=== PATIENT | female | born 1965 | race Caucasian/White ===

== ENCOUNTER 2017-09-03 11:13 | Day surgery (SDC) | payer MEDICAID, SELFPAY ==
[2017-09-03 11:28] VITALS: BP 107/63; PULSE 85; RESP 16; TEMP 36; O2SAT 97; BMI 36.6
[2017-09-03] MEDS: Cefazolin 2 GM in 0.9% Normal Saline 100 ML IV (12:56)
--- NOTE | 2017-09-03 13:27 | PCM.OPRPT ---
Problem List (1) Seroma, postoperative Status: Acute Qualifiers: Surgical complication system/body Area: subcutaneous tissue Procedure type: non-dermatologic Qualified Code(s): L76.34 - Postprocedural seroma of skin and subcutaneous tissue following other procedure Report of Operation Date of Procedure: 09/03/17 Pre-Operative Diagnosis: Right lower quadrant pain and subcutaneous mass Post-Operative Diagnosis: Postoperative seroma Surgery/Procedure Performed:: Incision and drainage of postoperative seroma with placement of drain Description of Surgical Findings:: The patient had an ultrasound beginning of August which showed a possible mass versus seroma in the right lower quadrant where she was having all of her pain. I made an incision in the area and deepened into this area and intra-drain fluid and communicated with the former hernia site. About 70 cc of fluid was removed and a 15 Slovenian round drain was placed in the cavity. Specimen's removed: None Drains: 10 Slovenian round JANIE Description of Procedure: The patient was prepped and draped in usual sterile fashion. A 2 cm incision was made at the site where she was having the pain. Electrocautery was used to gain hemostasis. Next I dissected deeper until the firm area was reached. Upon entering this there was a large return of fluid. This was suctioned and a Yankauer was used to follow the tract medially where a copious amount of fluid was suctioned. There appeared to be a cavity at the former hernia repair site. I placed a 15 Slovenian round drain into this cavity and placed to bulb suction. The drain was then sutured to the skin with a nylon suture. Next interrupted 3-0 Vicryl sutures were used to close the incision as well as Steri-Strips. The patient tolerated the procedure well and the drain was put to bulb suction.
[2017-09-03 13:35] VITALS: BP 107/63; BP 109/65; PULSE 90; RESP 12; TEMP 36.3; O2SAT 98
[2017-09-03 13:45] VITALS: BP 107/63; BP 95/64; PULSE 82; RESP 16; O2SAT 100
--- NOTE | 2017-09-03 13:51 | DCINST_ITS ---
Discharge Diet: Light diet - advance as tolerated Discharge Activity: Return to Normal Activity, May Not Drive - for 2-3 days or while taking narcotic pain meds., May Shower - with the bandage in place 1-2 days after surgery. Call your doctor if your incision/area has: Continuous Slow Oozing, Sudden Increased Bleeding, Increased Pain/ Swelling, Increased Redness, Foul Smelling Discharge Call your doctor if you observe: Fever of 101 or Higher Suture Line Care: Avoid Pulling/Pushing, Avoid Pinching/Bending Change Dressing in (Days):: 2 - Record drainage amount Cleanse incision/area with: Keep Dressing Clean & Dry Allergies/Adverse Reactions: Allergies ibuprofen Allergy (Verified 09/02/17 11:00) Angioedema latex Allergy (Verified 09/02/17 11:00) Rash pineapple [Pineapple] Allergy (Verified 09/02/17 11:00) Anaphylaxis lorazepam [From Ativan] Adverse Reaction (Verified 09/02/17 11:02) Upset Stomach naproxen sodium [From Aleve] Adverse Reaction (Verified 09/02/17 11:00) Other Medications to take at Discharge Budesonide/Formoterol 80-4.5 [Symbicort 80-4.5 Mcg Inhaler] 2 puff INHALATION BID 01/18/14 Citalopram [Celexa] 20 mg PO DAILY 01/18/14 Loratadine [Claritin] 10 mg PO DAILY 01/18/14 Trazodone HCl 50 mg PO DAILY 05/04/14 Albuterol Inhaler [Ventolin Hfa] 2 puff INHALATION Q4H PRN PRN 03/26/17 Dextroamphetamine/Amphetamine [Adderall 30 mg Tablet] 30 mg PO BID 03/26/17 Divalproex Sodium [Depakote] 125 mg PO BIDCM 03/26/17 Gabapentin [Neurontin] 800 mg PO BIDCM 03/26/17 Diazepam [Valium] 5 mg PO 4X/DAY PRN PRN #30 tab 04/03/17 Doxycycline 100 mg PO BID #28 cap 04/03/17 Oxycodone HCl/Acetaminophen [Percocet 7.5-325 mg Tablet] 1 - 2 tab PO 4X/DAY # 50 04/03/17 ProMETHAzine [Phenergan] 25 mg PO 4X/DAY PRN PRN #30 tab 04/03/17 Docusate Sodium [Stool Softener] 100 mg PO DAILY 09/02/17 Oxycodone HCl/Acetaminophen [Percocet 5/325] 1 - 2 tablet PO Q4H PRN 10 Days # 20 tablet 09/03/17 The following prescriptions were given: Oxycodone HCl/Acetaminophen [Percocet 5/325] 1 - 2 tablet PO Q4H PRN 10 Days # 20 tablet PRN Reason: Pain Primary Care Physician: Juan Manuel Carbajal DO [Primary Care Provider] - Please Follow Up With: Karl Nguyen MD When: call tomorrow to make 1 week follow up appt [phone]
[2017-09-03 14:00] VITALS: BP 107/63; BP 98/61; PULSE 77; RESP 18; O2SAT 98
[2017-09-03 14:15] VITALS: BP 107/63; PULSE 72; RESP 16; TEMP 36.4; O2SAT 97
[2017-09-03 14:47] VITALS: BP 100/78; BP 107/63; PULSE 78; RESP 18; TEMP 36.8; O2SAT 98
== END 2017-09-03 14:49 | disposition home or self-care (01) ==
LOC: SDC 11:14 → AC 11:14
PROVIDERS: Family Provider Family Medicine; PCP Family Medicine; Visit Provider Surgery
PROC: (CPT 10140; principal; 2017-09-03 12:45)
DX: L76.34 Postprocedural seroma of skin and subcutaneous tissue following other procedure (principal); R10.9 Unspecified abdominal pain; M54.9 Dorsalgia, unspecified; G89.29 Other chronic pain; J45.909 Unspecified asthma, uncomplicated; K58.9 Irritable bowel syndrome, unspecified; K21.9 Gastro-esophageal reflux disease without esophagitis; F90.9 Attention-deficit hyperactivity disorder, unspecified type; F31.9 Bipolar disorder, unspecified; F41.9 Anxiety disorder, unspecified; Z79.899 Other long term (current) drug therapy; Z98.51 Tubal ligation status; Z78.0 Asymptomatic menopausal state; Z90.710 Acquired absence of both cervix and uterus
CPT/HCPCS: 00400; 10140; J7120; J2405

== ENCOUNTER → 2017-09-18 13:00 | Outpatient (CLI) | payer MEDICAID, SELFPAY ==
[2017-09-22 12:53] LABS: ANTINUCLEAR ANTIBODIES DIRECT Negative (Negative)
== END ==
PROVIDERS: Family Provider Family Medicine; PCP Family Medicine; Visit Provider Family Medicine
DX: R21 Rash and other nonspecific skin eruption (principal)
CPT/HCPCS: 86038; 86225; 86235

== ENCOUNTER → 2017-10-22 20:07 | Outpatient (CLI) | payer MEDICAID, SELFPAY | PROVIDERS: Family Provider Family Medicine; PCP Family Medicine; Visit Provider Family Medicine | DX: G47.33 Obstructive sleep apnea (adult) (pediatric) (principal) | CPT/HCPCS: 95811 ==

== ENCOUNTER → 2017-12-17 11:29 | Outpatient (CLI) | payer MEDICAID, SELFPAY | PROVIDERS: Family Provider Family Medicine; PCP Family Medicine; Visit Provider Family Medicine | DX: Z79.899 Other long term (current) drug therapy (principal) | CPT/HCPCS: 36415 ==

== ENCOUNTER 2018-01-31 23:04 | Inpatient (IN) | payer MEDICAID, SELFPAY ==
[2018-01-31 23:04] VITALS: BP 115/72; PULSE 121; RESP 26; TEMP 37.8; O2SAT 100; BMI 38.7
[2018-01-31 23:35] VITALS: PULSE 118; RESP 26
[2018-01-31] MEDS: Ipratropium/Albuterol Sulfate 3 ML AMPUL.NEB INHALATION (23:35)
[2018-01-31 23:38] LABS: Absolute Lymphocyte Count 1.04 X10^3/ul (0.83-4.51); Absolute Neutrophil Count 16.3 X10^3/uL (2.0-7.7); Basophil# 0.01 X10^3/uL; Basophil% 0.1 % (0-1); Hematocrit 40.4 % (37-47); Lymphocyte # 1.04 X10^3/ul (4.0); Lymphocyte % 5.6 % (19-41); Mean Corp Hgb Conc 34.7 g/gl (32-36); Mean Corpuscular Hgb 28.6 pg (27.0-32.0); Mean Corpuscular Volume 82.4 fL (81-99); Mean Platelet Vol. 10.6 fl (6.2-12.0); Monocyte# 1.08 X10^3/uL; Monocyte% 5.8 % (0-10); Neutrophil # 16.32 X10^3/uL (2.7-7.7); Neutrophil % 88.3 % (47-70); Platelet Count 221 K/mm3 (150-450); RBC Distribution Width CV 13.6 % (11.6-14.6); RBC Distribution Width SD 40.6 fl (35.1-43.9); White Blood Count 18.5 K/mm3 (4.4-11.0)
[2018-01-31 23:40] LABS: POSITIVE COUNT NO; POSITIVE DIFFERENTIAL NO; POSITIVE MORPHOLOGY NO
[2018-01-31] MEDS: 0.9% Normal Saline 1,000 ML 1000 ML IV (23:47)
[2018-01-31] MEDS: DiphenhydrAMINE 50 MG/ML Syringe IV (23:50)
[2018-01-31] MEDS: Acetaminophen 500 MG Tablet 1000 MG PO (23:50)
[2018-01-31] MEDS: Ondansetron 4 MG/2 ML Vial IV (23:56)
[2018-01-31 23:58] LABS: ALB/GLOB Ratio 0.7 RATIO (0.9-2.4); AST(SGOT) 45 U/L (15-37); Alanine Aminotransfer ALT/SGPT 31 U/L (13-56); Albumin, Serum 3.5 g/dL (3.2-5.0); Alkaline Phosphatase 69 U/L (45-117); Anion Gap 10 (5-15); BUN 23 mg/dL (7-18); BUN/Creat Ratio 15.8 RATIO (10-20); Calcium,Total 9.3 mg/dL (8.5-10.1); Chloride 98 mmol/L (98-107); Creatinine, Serum 1.46 mg/dL (0.55-1.02); EST Glomerular Filtration Rate 40 mL/min (>60); Est Glom Filt Rate - Afr Amer 48 mL/min (>60); Glucose 92 mg/dL (74-106); Potassium 4.2 mmol/L (3.5-5.1); Protein, Total 8.5 g/dL (6.4-8.2); Sodium Level 132 mmol/L (136-145)
[2018-02-01] VITALS (15 sets, daily range): BP systolic 93–111; BP diastolic 44–70; PULSE 77–110; RESP 15–20; TEMP 37.2–37.7; O2SAT 93–98; BMI 38.6; BMI 38.7
--- NOTE | 2018-02-01 00:05 | CT_ITS ---
STUDY: CT ABDOMEN AND PELVIS WITHOUT CONTRAST REASON FOR EXAM: Female, 52 years old. Cellulitis left abdominal wall RADIATION DOSAGE (If Supplied By Facility): CTDIvol = ( 20.84 ) mGy, DLP = ( 1129.72 ) mGycm TECHNIQUE: Transaxial images were obtained from the dome of the diaphragm to the symphysis pubis without oral contrast, and without intravenous contrast. Sagittal and coronal images were reconstructed. Individualized dose optimization techniques were used for this CT. COMPARISON: None. FINDINGS: The lung bases are clear. The liver is normal with no dilated intrahepatic biliary radicles. Previous cholecystectomy. The spleen, pancreas and both adrenals are normal. The kidneys are normal with no masses, calculi or hydronephrosis. The stomach is normal. There is no bowel distention, acute appendicitis or diverticulitis. No abnormally constricting large bowel lesions. A power generator is in the right gluteal region. A lead wire extends from it into the right presacral space. Cellulitis in the left flank. Old postsurgical changes in the anterior abdominal wall at the level of the umbilicus There is no ascites, free intraperitoneal air or any evidence of epiploic appendagitis. The vascular structures in the retroperitoneum are normal The bones and joints seen are normal with no osteolytic or osteoblastic changes There is no retrocrural, retroperitoneal or mesenteric adenopathy. There is no mesenteric mistiness The urinary bladder is normal.. The uterus is absent There is no inguinal or pelvic adenopathy and there is no inguinal hernia .. CT/Abdomen/Pelvis without Cont IMPRESSION: About a 10 cm area of cellulitis in the left flank. No acute findings in the abdomen or pelvis. Specifically there is no acute appendicitis or diverticulitis. Electronically Signed: Darren Renee, at 1:27 EDT Tel , Service support ,
[2018-02-01 00:28] LABS: Color, Urine Yellow (Yellow); Glucose, Dipstick Normal (Normal); Ketone-Dipstick 5 mg/dl (Negative); Leukocyte Esterase-Dipstick 25 /ul (Negative); Nitrite-Dipstick Negative (Negative); Occult Blood-Urine Negative /ul (Negative); Protein-Dipstick Negative (Negative); Urine Bilirubin Dipstick Negative (Negative); Urine Clarity Clear (Clear); Urine Urobilinogen 4 mg/dl (Normal)
[2018-02-01 00:48] LABS: Lactic Acid 2.3 mmol/L (0.4-2.0)
--- NOTE | 2018-02-01 00:53 | NURSING ---
lab called with critical lab results. lactic acid 2.3. Dr. Bassett made aware no new orders at this time
[2018-02-01 02:19] LABS: Mucous, Urine 0 SEEN /hpf (<or=2+); Red Blood Cells-Urine 0 SEEN /hpf (0-5)
[2018-02-01 02:26] LABS: Bacteria RARE /hpf (None Seen); Squamous Epithelial Cells - UA 0-5 SEEN /hpf (5-10); White Blood Cells 0-5 SEEN /hpf (0-5)
[2018-02-01] MEDS: Cefazolin 1 GM/50 ML BAG IV ×3 (02:38→21:02)
--- NOTE | 2018-02-01 03:08 | ED.VISSUMM ---
- ER Visit Summary Date of Service: 02/01/18 Chief Complaint: Abdomen red History of Present Illness: The patient is a [address] Carbajal. She is a very poor informant. She reports that her abdomen became red today. Reports that she has had this off and on since 2011 and that is due to anxiety. Patient reports she has a fever that began today. She has been short of breath. She used her inhaler with relief. She denies a cough. She has been nausea and vomited 6 times. No blood or emesis. No diarrhea. She reports she has a headache that stated 10 severity. She does have a history of similar headaches. She denies any other complaints. Physical Examination: Vitals: 100.0, 115/72, 121, 26, 100% on room air which is not hypoxic. General: Well-nourished and well-developed. Head: Normocephalic atraumatic. Neck: Supple, no lymphadenopathy. No JVD. Nontender. Cardiovascular: Tachycardic regular rhythm with 2 out of 6 systolic murmur Respiratory: No respiratory distress. Clear to auscultation bilaterally. Abdominal: Soft, mild diffuse tenderness to palpation, nondistended, normal bowel sounds. No guarding, rebound, or peritoneal signs. Back: Nontender. Extremities: Nontender, no edema. Skin: Erythematous rash over her abdomen and left flank. This is nontender. There is no crepitus. Neurologic: Alert and oriented ?3. Cranial nerves II through XII are intact. Normal strength and sensation. Psych: Normal affect. Test Results: CBC is marked for white count of 18.5 with 88 segmented neutrophils and 6 lymphocytes. Lactic acid is 2.3. Chem-7 is more for sodium 132, BUN 23, creatinine 1.46. LFTs marked for total protein of 8.5, globulin 5.0, total bili 1.4, and AST 45. CT flank shows a 10 cm area of cellulitis left flank. There is no abscess. She does not have appendicitis diverticulitis. Emergency Department Course and Treatment: Patient had an IV placed. She was given vancomycin and Ancef IV. She was given Tylenol p.o. She was given albuterol Atrovent aerosols. She is resting comfortably. Treatment Plan: Patient was discussed Dr. Stack. She will be admitted to the hospital for further relation and treatment. Disposition: Admitted in serious condition. Impression: 1. Severe sepsis. 2. Cellulitis left flank. This note was generated with [employer] dictation software. It may contain incorrect words, spelling, and punctuation that were not noted in review of the chart prior to signing ED Disposition - Plan for ED Patient: Chief Complaint: General Illness
--- NOTE | 2018-02-01 03:12 | NURSING ---
Called ED to tell them OK to bring patient to PCU at this time. ED verbalized understanding.
--- NOTE | 2018-02-01 04:09 | PCM.RX.CS ---
Consult Pharmacy has been consulted to manage selected antiobiotic: Vancomycin Type of Consult: New start Suspected Infection: Sepsis Prior Doses of Antibiotics Received/Current Regimen: Medications Vancomycin HCl 750 mg/ Sodium (Chloride) 265 mls @ 265 mls/hr IV Q12H TRE Discontinued Medications Vancomycin HCl 1,750 mg/ (Dextrose) 535 mls @ 250 mls/hr IV X1 ONE Stop: 02/01/18 01:53 Last Admin: 01/31/18 23:50 Dose: 250 mls/hr Labs: Sodium 132 mmol/L (136-145) L 01/31/18 23:26 Potassium 4.2 mmol/L (3.5-5.1) 01/31/18 23:26 Chloride 98 mmol/L (98-107) 01/31/18 23:26 Carbon Dioxide 24.0 mmol/L (21.0-32.0) 01/31/18 23:26 Anion Gap 10 (5-15) 01/31/18 23:26 BUN 23 mg/dL (7-18) H 01/31/18 23:26 Creatinine 1.46 mg/dL (0.55-1.02) H 01/31/18 23:26 Est GFR (MDRD) Af Amer 48 mL/min (>60) L 01/31/18 23:26 Est GFR (MDRD) Non-Af 40 mL/min (>60) L 01/31/18 23:26 BUN/Creatinine Ratio 15.8 RATIO (10-20) 01/31/18 23:26 Glucose 92 mg/dL (74-106) 01/31/18 23:26 Weight used for dosin.8 kg Estimated Creatinine Clearance: 42 Goal Trough: 15-20 mcg/mL Pharmacy Plan for Drug Dosing: Pharmacy Service will continue to monitor and adjust dosing as required. Follow-Up Labs: Trough Vancomycin Labs to be done on [date and time ordered]: 02/02/18 @1132
--- NOTE | 2018-02-01 04:21 | PCM.HP.STD ---
Problem List (1) Abdominal wall redness Status: Acute (2) Shortness of breath Status: Acute History of Present Illness Date of Admission: 02/01/18 Chief Complaint: Abdominal wall redness, shortness of breath The patient is a 52 year old F seen in the emergency room at [facility] with complaints of abdominal wall redness and itching which started about 530 on 01/31/18, she also complained that she was short of breath. Patient denied any sputum production, cough, fever, or chills. Included labs which were remarkable for a white blood cell count elevation at 18.5, creatinine was elevated at 1.46, BUN was 23, lactic acid was 2.3. Patient's pulse ox on room air was 100%, her temp was 100, pulse was elevated at 121 and respirations were elevated at 26. CT abdomen and pelvis was obtained which showed a 10 cm area of cellulitis over the left flank area, examination of the patient revealed severe redness of the anterior abdominal wall extending into the left lateral flank area, there were no fluctuant areas, the skin was warm and severely reddened, no drainage was noted from the area. Patient was felt to have abdominal wall cellulitis extending into the left flank area, severe sepsis and acute kidney injury, she was given IV vancomycin and Ancef in the emergency room, she will be admitted to PCU. Past Medical History Past Medical History (Chronic Problems): Chronic Problems (Last Updated 02/01/18 @ 04:36 by Juan Manuel Stack DO) Depression (Chronic) Anxiety (Chronic) ADHD (attention deficit hyperactivity disorder), combined type (Chronic) Chronic back pain (Chronic) Abdominal wall abscess at site of surgical wound (Chronic) Medical History: Medical History (Last Updated 02/01/18 @ 04:36 by Juan Manuel Stack DO) Atypical chest pain (Resolved) R07.89 Depression (Chronic) F32.9 Anxiety (Chronic) F41.9 ADHD (attention deficit hyperactivity disorder), combined type (Chronic) F90.2 Chronic back pain (Chronic) M54.9, G89.29 Abdominal wall abscess at site of surgical wound (Chronic) T81.4XXA Bladder pacemaker Bipolar 1 disorder F31.9 H/O CERVICAL TUMOR History of left knee surgery Z98.890 History of tooth extraction K08.409 History of umbilical hernia Z87.19 IBS (irritable bowel syndrome) K58.9 REPAIR OF INFECTED ABDOMINAL WALL WITH RECON AND UMB HERNIA history of abdominal seroma removal 09/03/17 Allergies ibuprofen Allergy (Verified 01/31/18 23:05) Angioedema latex Allergy (Verified 01/31/18 23:05) Rash pineapple [Pineapple] Allergy (Verified 01/31/18 23:05) Anaphylaxis lorazepam [From Ativan] Adverse Reaction (Verified 01/31/18 23:05) Upset Stomach naproxen sodium [From Aleve] Adverse Reaction (Verified 01/31/18 23:05) Other Home Medications: Ambulatory Orders Medication Instructions Recorded Citalopram [Celexa] 20 mg PO DAILY 01/18/14 Loratadine [Claritin] 10 mg PO DAILY 01/18/14 Albuterol Inhaler [Ventolin Hfa] 2 puff INHALATION Q4H PRN PRN 03/26/17 Dextroamphetamine/Amphetamine 30 mg PO BID 03/26/17 [Adderall 30 mg Tablet] Divalproex Sodium [Depakote] 125 mg PO BIDCM 03/26/17 Gabapentin [Neurontin] 800 mg PO BIDCM 03/26/17 Diazepam [Valium] 5 mg PO 4X/DAY PRN PRN #30 tab 04/03/17 Oxycodone HCl/Acetaminophen 1 - 2 tab PO 4X/DAY #50 04/03/17 [Percocet 7.5-325 mg Tablet] Docusate Sodium [Stool Softener] 100 mg PO DAILY 09/02/17 Mometasone/Formoterol [Dulera 100 1 puff INHALATION BID 02/01/18 Mcg/5 Mcg Inhaler] Surgical History: Surgical History (Last Reviewed 02/01/18 @ 04:37 by Juan Manuel Stack DO) History of abdominoplasty Z98.890 History of bilateral carpal tunnel release Z98.890 History of hemiarthroplasty of right shoulder Z98.890 History of laparoscopic cholecystectomy Z98.890, Z90.49 History of left oophorectomy Z98.890, Z90.721 History of nasal surgery Z98.890 History of reconstruction of both breasts Z98.890 History of right knee surgery Z98.890 X 2 S/P partial hysterectomy Z90.711 Surgical History: cholecystectomy, hysterectomy, - - Bilateral carpal tunnel surgery, hemiarthroplasty of the right shoulder, reconstruction of both breasts, abdominoplasty, right knee surgery, nasal surgery, insertion of bladder pacemaker Psychiatric History: Attn. 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 Lives: With Family Smoking Status: Never smoker Tobacco Use: Non-smoker Alcohol: None Drugs: None - *Family History Maternal Family History: Family History (Last Reviewed 10/03/17 @ 13:29 by Micheline Azar) Son Asthma History Items: No pertinent history Paternal Family History: Family History (Last Reviewed 10/03/17 @ 13:29 by Micheline Azar) Son Asthma History Items: Asthma Review of Systems Constitutional: Denies: Anorexia, Chills, Fever, Night Sweats, Malaise, Weakness, Weight Change, Fatigue Eyes: Denies: Blurred vision, Cataracts, Conjunctivae Inflammation, Double vision, Drainage HEENT: Denies: Difficulty Hearing, Difficulty Swallowing, Dysphasia, Ear Pain, Eye Pain, Head Aches, Hearing Changes, Nasal bleeding, Nasal Congestion, Post Nasal Drip Cardiovascular: Denies: Chest Pain, Claudication, Chest Pressure, Chest Tightness, Edema, Heaviness, Orthopnea, Palpitations, Paroxysmal Noc. Dyspnea Respiratory: Reports: Shortness of Breath, Shortness of breath at rest, Shortness of breath upon exertion. Denies: Cough, Hemoptysis, Pleuritic Pain, Sputum production, Wheezing Gastrointestinal: Reports: Abdominal Pain - Abdominal wall discomfort. Denies: Constipation, Diarrhea, Hematemesis, Hematochezia, Nausea, Melena, Vomiting Genitourinary: Denies: Dysuria, Frequency, Hematuria, Hesitancy, Nocturia, Retention, Urgency Gynecological: Denies: Breast symptoms Musculoskeletal: Denies: Back Pain, Foot Pain, Hand Pain, Joint Pain, Joint stiffness, Joint swelling, Joint Tenderness, Leg Pain Skin: Reports: Rash - Rash over abdomen extending into the left flank area. Denies: Dryness, Pruritis Neurological: Denies: Balance problems, Blurred vision, Double vision, Change in Speech, Slurred speech, Difficulty swallowing, Focal weakness, Headaches, Incoordination, Numbness, Tingling Psychiatric: Denies: Anxiety, Depression, Homicidal Ideations, Suicidal Ideations Endocrine: Denies: Change in Body Habitus, Heat/ Cold Intolerance, Polydipsia, Polyuria Hematologic/ Lymphatic: Denies: Adenopathy, Anemia, Easy Bruising, Easy Bleeding, Petechiae, Purpura VTE Information - Inpt Only VTE Present on Admission: No VTE Mechan Device Prophylaxis: None VTE Pharm Prophylaxis ordered?: Yes Patient Problems: Active and Suspected Problems (Last Updated 02/01/18 @ 04:44 by Juan Manuel Stack DO) Abdominal wall redness (Acute) Shortness of breath (Acute) - Physical Exam General: Alert, Oriented x3, Cooperative, No apparent distress, Well developed, Well nourished HEENT: Atraumatic, PERRLA, EOMI, Normocephalic Oral: Moist Mucosa Neck: Supple, No JVD, No Nuchal Rigidity, Trachea Midline, Thyroid Normal Size and Texture Lungs: Clear to auscultation, Normal air movement, No rhonchi, No wheeze Cardiovascular: Regular rate, Regular Rhythm, Normal S1, Normal S2, No murmurs, PMI Normal, No rub noted, Tachycardic Abdomen: Bowel Sounds Present, Soft, Non Tender, Non-Distended, - - There is a diffuse rash noted over the patient's entire abdominal wall, this rash extends into the left flank area Extremities: No clubbing, No cyanosis, No edema, Capillary Refill Less than 3 Seconds Skin: No breakdown, Rash Present - There is a rash present over the entire abdominal wall extending into the left flank area, skin is indurated over the abdomen and left flank area Musculoskeletal: No Tenderness to Palpation of Joints or Extremities Neurological: Cranial nerves II-XII grossly intact, Neuro grossly intact, Muscle tone normal, Sensory exam intact to light touch and pain, Coordination normal Psych/Mental Status: Normal Affect, Appropriate, Alert and oriented to time, place, person, mood and affect Vital Signs Temp Pulse Resp BP Pulse Ox 99.5 F H 95 15 95/65 96 02/01/18 02:21 02/01/18 02:21 02/01/18 02:21 02/01/18 02:21 02/01/18 02:21 Oxygen Delivery Method Room Air Assessment/Plan All Active Problems (Last Updated 02/01/18 @ 04:44 by Juan Manuel Stack DO) Seroma, postoperative (Resolved) Abdominal wall redness (Acute) Shortness of breath (Acute) Atypical chest pain (Resolved) #1 severe sepsis secondary to abdominal wall cellulitis-patient will be admitted to PCU, she was given IV vancomycin and Ancef, these will be continued on the floor, blood cultures were obtained in the emergency room, lactic acid will be rechecked #2 abdominal wall cellulitis extending into the left flank area-treatment as above #3 acute kidney injury-patient appears to be dehydrated, patient's creatinine in March 2017 was 0.88, patient will be given IV fluids, labs will be rechecked #4 bipolar 1 disorder #5 ADHD #6 dyspnea-etiology unclear, this may be secondary to her sepsis, patient's lungs are clear and her pulse ox is 100% on room air. #7 asthma by history Code Visit Inpatient E&M: 88336 Init Hosp L3
[2018-02-01 04:24] LABS: Reflex Lactate? Y
[2018-02-01] MEDS: oxyCODONE 5 MG Tablet 10 MG PO (04:36)
[2018-02-01 04:57] LABS: International Normalized Ratio 1.2; Prothrombin Time (Protime)PT. 15.1 SECONDS (11.7-14.9)
[2018-02-01 05:11] LABS: Lactic Acid 1.3 mmol/L (0.4-2.0)
[2018-02-01] MEDS: 0.9% Normal Saline 1,000 ML 150 ML IV ×3 (05:28→20:59)
[2018-02-01] MEDS: Gabapentin 800 MG Tablet PO ×2 (07:47→16:48)
[2018-02-01] MEDS: Citalopram 20 MG Tablet PO (07:47)
[2018-02-01] MEDS: Divalproex Sodium 125 MG Tablet PO ×2 (07:47→16:48)
[2018-02-01] MEDS: Loratadine 10 MG Tablet PO (07:48)
[2018-02-01] MEDS: Docusate Sodium 100 MG Capsule PO (07:48)
--- NOTE | 2018-02-01 10:04 | PCM.PN.BLA ---
Progress Note This is a 52 years old female patient admitted because of abdominal wall redness, diagnosed with acute anterior abdominal wall cellulitis. She had a history of nonhealing infected ulcer of the lower midline abdominal wall, went for excisional debridement on March, by Dr. Silver and Dr. Nguyen. This morning, she complained of itching on her abdominal wall. She does spike of low-grade fever last night. She was seen and examined. On examination: Erythema and swelling of the anterior abdominal wall extending to the left flank with chronic nonhealing wound in the lower midline, soft abdomen, nontender. Plan: MRSA wound screen, wound culture from the wound in the lower midline, general surgery consult.
--- NOTE | 2018-02-01 10:10 | PN_ITS ---
Progress Note This is a 52 years old female patient admitted because of abdominal wall redness , diagnosed with acute anterior abdominal wall cellulitis. She had a history of nonhealing infected ulcer of the lower midline abdominal wall, went for excisional debridement on March, by Dr. Silver and Dr. Nguyen. This morning, she complained of itching on her abdominal wall. She does spike of low -grade fever last night. She was seen and examined. On examination: Erythema and swelling of the anterior abdominal wall extending to the left flank with chronic nonhealing wound in the lower midline, soft abdomen, nontender. Plan: MRSA wound screen, wound culture from the wound in the lower midline, general surgery consult.
[2018-02-01 11:46] LABS: M R Staph aureus DNA By PCR Negative (Negative); Probe Check PASS; Specimen Processing Control PASS
[2018-02-02] VITALS (11 sets, daily range): BP systolic 94–119; BP diastolic 42–67; PULSE 62–97; RESP 16–18; TEMP 36.9–37.2; O2SAT 95–98
[2018-02-02] MEDS: 0.9% Normal Saline 1,000 ML 150 ML IV ×2 (05:28→12:54)
[2018-02-02] MEDS: Cefazolin 1 GM/50 ML BAG IV ×3 (05:28→21:17)
[2018-02-02 06:32] LABS: Absolute Lymphocyte Count 1.54 X10^3/ul (0.83-4.51); Absolute Neutrophil Count 7.4 X10^3/uL (2.0-7.7); Basophil# 0.02 X10^3/uL; Basophil% 0.2 % (0-1); Eosinophil# 0.04 X10^3/uL; Eosinophils% 0.4 % (0-5); Hematocrit 35.9 % (37-47); Hemoglobin 11.9 g/dl (12.0-15.0); Lymphocyte # 1.54 X10^3/ul (4.0); Lymphocyte % 15.4 % (19-41); Mean Corp Hgb Conc 33.1 g/gl (32-36); Mean Corpuscular Hgb 28.1 pg (27.0-32.0); Mean Corpuscular Volume 84.9 fL (81-99); Mean Platelet Vol. 10.8 fl (6.2-12.0); Monocyte# 1.01 X10^3/uL; Monocyte% 10.1 % (0-10); Neutrophil # 7.39 X10^3/uL (2.7-7.7); Neutrophil % 73.8 % (47-70); Platelet Count 162 K/mm3 (150-450); RBC Distribution Width CV 14.2 % (11.6-14.6); RBC Distribution Width SD 43.2 fl (35.1-43.9); Red Blood Count 4.23 M/mm3 (4.2-5.4)
[2018-02-02 06:36] LABS: POSITIVE COUNT NO; POSITIVE DIFFERENTIAL NO; POSITIVE MORPHOLOGY NO
[2018-02-02 06:50] LABS: Anion Gap 8 (5-15); BUN 13 mg/dL (7-18); BUN/Creat Ratio 14.3 RATIO (10-20); Calcium,Total 8.1 mg/dL (8.5-10.1); Chloride 108 mmol/L (98-107); Creatinine, Serum 0.91 mg/dL (0.55-1.02); EST Glomerular Filtration Rate 69 mL/min (>60); Est Glom Filt Rate - Afr Amer 83 mL/min (>60); Glucose 94 mg/dL (74-106); Potassium 3.7 mmol/L (3.5-5.1); Sodium Level 139 mmol/L (136-145)
[2018-02-02] MEDS: Gabapentin 800 MG Tablet PO ×2 (08:11→16:11)
[2018-02-02] MEDS: Citalopram 20 MG Tablet PO (08:11)
[2018-02-02] MEDS: Docusate Sodium 100 MG Capsule PO (08:11)
[2018-02-02] MEDS: Loratadine 10 MG Tablet PO (08:11)
[2018-02-02] MEDS: Divalproex Sodium 125 MG Tablet PO ×2 (08:11→16:11)
--- NOTE | 2018-02-02 08:17 | PCM.CONS.GEN ---
Problem List (1) Abdominal wall redness Status: Acute Reason for Consult Date of Consultation: 02/02/18 History of Present Illness: The patient is a 52 year old F who is known to me for a nonhealing seroma of the abdominal wall. She presented to the emergency room yesterday with cellulitis of her abdomen. Today she reports her pain is improving and she is having no fevers or chills. Past Medical History Past Medical History (Chronic Problems): Chronic Problems (Last Updated 02/01/18 @ 04:44 by Juan Manuel Stack DO) Depression (Chronic) Anxiety (Chronic) ADHD (attention deficit hyperactivity disorder), combined type (Chronic) Chronic back pain (Chronic) Abdominal wall abscess at site of surgical wound (Chronic) Medical History: Medical History (Last Updated 02/01/18 @ 04:44 by Juan Manuel Stack DO) Atypical chest pain (Resolved) R07.89 Depression (Chronic) F32.9 Anxiety (Chronic) F41.9 ADHD (attention deficit hyperactivity disorder), combined type (Chronic) F90.2 Chronic back pain (Chronic) M54.9, G89.29 Abdominal wall abscess at site of surgical wound (Chronic) T81.4XXA Bladder pacemaker Bipolar 1 disorder F31.9 H/O CERVICAL TUMOR History of left knee surgery Z98.890 History of tooth extraction K08.409 History of umbilical hernia Z87.19 IBS (irritable bowel syndrome) K58.9 REPAIR OF INFECTED ABDOMINAL WALL WITH RECON AND UMB HERNIA history of abdominal seroma removal 09/03/17 Allergies ibuprofen Allergy (Verified 01/31/18 23:05) Angioedema latex Allergy (Verified 01/31/18 23:05) Rash pineapple [Pineapple] Allergy (Verified 01/31/18 23:05) Anaphylaxis lorazepam [From Ativan] Adverse Reaction (Verified 01/31/18 23:05) Upset Stomach naproxen sodium [From Aleve] Adverse Reaction (Verified 01/31/18 23:05) Other Home Medications: Ambulatory Orders Medication Instructions Recorded Citalopram [Celexa] 20 mg PO DAILY 01/18/14 Loratadine [Claritin] 10 mg PO DAILY 01/18/14 Albuterol Inhaler [Ventolin Hfa] 2 puff INHALATION Q4H PRN PRN 03/26/17 Dextroamphetamine/Amphetamine 30 mg PO BID 03/26/17 [Adderall 30 mg Tablet] Divalproex Sodium [Depakote] 125 mg PO BIDCM 03/26/17 Gabapentin [Neurontin] 400 mg PO BIDCM 03/26/17 Diazepam [Valium] 5 mg PO 4X/DAY PRN PRN #30 tab 04/03/17 Oxycodone HCl/Acetaminophen 1 - 2 tab PO 4X/DAY #50 04/03/17 [Percocet 7.5-325 mg Tablet] Docusate Sodium [Stool Softener] 100 mg PO DAILY 09/02/17 Mometasone/Formoterol [Dulera 100 1 puff INHALATION BID 02/01/18 Mcg/5 Mcg Inhaler] Surgical History: Surgical History (Last Reviewed 02/01/18 @ 04:37 by Juan Manuel Stack DO) History of abdominoplasty Z98.890 History of bilateral carpal tunnel release Z98.890 History of hemiarthroplasty of right shoulder Z98.890 History of laparoscopic cholecystectomy Z98.890, Z90.49 History of left oophorectomy Z98.890, Z90.721 History of nasal surgery Z98.890 History of reconstruction of both breasts Z98.890 History of right knee surgery Z98.890 X 2 S/P partial hysterectomy Z90.711 Surgical History: cholecystectomy, hysterectomy, - - Bilateral carpal tunnel surgery, hemiarthroplasty of the right shoulder, reconstruction of both breasts, abdominoplasty, right knee surgery, nasal surgery, insertion of bladder pacemaker Psychiatric History: Attn. 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 Denies: Nausea, Melena, Vomiting Genitourinary: Denies: Dysuria Musculoskeletal: Denies: Joint Tenderness Skin: Denies: Jaundice Neurological: Denies: Numbness Hematologic/ Lymphatic: Denies: Anemia Patient Problems: Active and Suspected Problems (Last Updated 02/01/18 @ 04:44 by Juan Manuel Stack DO) Abdominal wall redness (Acute) Shortness of breath (Acute) - Physical Exam General: Alert, Oriented x3, Cooperative HEENT: Atraumatic, PERRLA Neck: No JVD Lungs: Normal air movement Cardiovascular: Regular rate, Regular Rhythm Abdomen: - - Abdomen is soft, nondistended. She does have cellulitis of the abdomen that extends from midline to the left flank. There is blanching but it does not appear to be spreading beyond the marked it was made yesterday. Vital Signs Temp Pulse Resp BP Pulse Ox 98.9 F 85 16 119/54 L 98 02/02/18 08:00 02/02/18 08:00 02/02/18 08:00 02/02/18 08:00 02/02/18 08:00 Oxygen Delivery Method Room Air Weight: 240 lb 8.389 oz Body Mass Index (BMI) 38.6 Intake and Output for Last 24 Hours 01/31/18 02/01/18 02/02/18 23:59 23:59 23:59 Intake Total 4327 / 4327 1200 / 1200 Output Total 1200 / 1200 600 / 600 Balance 3127 / 3127 600 / 600 Laboratory Tests Past 24 Hrs 02/01/18 02/02/18 02/02/18 09:37 05:56 05:56 WBC 10.0 RBC 4.23 Hgb 11.9 L Hct 35.9 L MCV 84.9 MCH 28.1 MCHC 33.1 RDW 14.2 RDW Differential 43.2 Plt Count 162 MPV 10.8 Immature Gran % (Auto) 0.100 Neut % (Auto) 73.8 H Lymph % (Auto) 15.4 L [place] % (Auto) 10.1 H Eos % (Auto) 0.4 Baso % (Auto) 0.2 Absolute Neuts (auto) 7.4 Absolute Lymphs (auto) 1.54 Total Counted Not Reportable Sodium 139 Potassium 3.7 Chloride 108 H Carbon Dioxide 23.0 Anion Gap 8 BUN 13 Creatinine 0.91 Estim Creat Clear Calc 67.70 Est GFR (MDRD) Af Amer 83 Est GFR (MDRD) Non-Af 69 BUN/Creatinine Ratio 14.3 Glucose 94 Calcium 8.1 L MRSA (PCR) Negative Clinical Impression(s) from Imaging Studies Abdomen/Pelvis CT 02/01/18 00:05 IMPRESSION: About a 10 cm area of cellulitis in the left flank. No acute findings in the abdomen or pelvis. Specifically there is no acute appendicitis or diverticulitis. Electronically Signed: Darren Renee, at 1:27 EDT Tel , Service support , Assessment/Plan All Active Problems (Last Updated 02/01/18 @ 04:44 by Juan Manuel Stack DO) Seroma, postoperative (Resolved) Abdominal wall redness (Acute) Shortness of breath (Acute) Atypical chest pain (Resolved) 52-year-old female with abdominal wall cellulitis 1. The patient has cellulitis. Her white count is improving in response to the antibiotics. 2. The patient had a CT scan which showed postoperative changes but no drainable fluid collection. The patient does not have a mesh infection as she has no abdominal wall mesh. Her hernia was fixed with tissue alone. 3. Continue antibiotics. Okay for conversion to p.o. antibiotics and discharged home when okay with the primary team. No surgical indications at this time. Karl Nguyen MD Pager: [facility] [address] [place] [address], [address] [place] [address] Office:
--- NOTE | 2018-02-02 08:20 | CON.PCM_ITS ---
Problem List (1) Abdominal wall redness Status: Acute Reason for Consult Date of Consultation: 02/02/18 History of Present Illness: The patient is a 52 year old F who is known to me for a nonhealing seroma of the abdominal wall. She presented to the emergency room yesterday with cellulitis of her abdomen. Today she reports her pain is improving and she is having no fevers or chills. Past Medical History Past Medical History (Chronic Problems): Chronic Problems (Last Updated 02/01/18 @ 04:44 by Juan Manuel Stack DO) Depression (Chronic) Anxiety (Chronic) ADHD (attention deficit hyperactivity disorder), combined type (Chronic) Chronic back pain (Chronic) Abdominal wall abscess at site of surgical wound (Chronic) Medical History: Medical History (Last Updated 02/01/18 @ 04:44 by Juan Manuel Stack DO) Atypical chest pain (Resolved) R07.89 Depression (Chronic) F32.9 Anxiety (Chronic) F41.9 ADHD (attention deficit hyperactivity disorder), combined type (Chronic) F90.2 Chronic back pain (Chronic) M54.9, G89.29 Abdominal wall abscess at site of surgical wound (Chronic) T81.4XXA Bladder pacemaker Bipolar 1 disorder F31.9 H/O CERVICAL TUMOR History of left knee surgery Z98.890 History of tooth extraction K08.409 History of umbilical hernia Z87.19 IBS (irritable bowel syndrome) K58.9 REPAIR OF INFECTED ABDOMINAL WALL WITH RECON AND UMB HERNIA history of abdominal seroma removal 09/03/17 Allergies ibuprofen Allergy (Verified 01/31/18 23:05) Angioedema latex Allergy (Verified 01/31/18 23:05) Rash pineapple [Pineapple] Allergy (Verified 01/31/18 23:05) Anaphylaxis lorazepam [From Ativan] Adverse Reaction (Verified 01/31/18 23:05) Upset Stomach naproxen sodium [From Aleve] Adverse Reaction (Verified 01/31/18 23:05) Other Home Medications: Ambulatory Orders Medication Instructions Recorded Citalopram [Celexa] 20 mg PO DAILY 01/18/14 Loratadine [Claritin] 10 mg PO DAILY 01/18/14 Albuterol Inhaler [Ventolin Hfa] 2 puff INHALATION Q4H PRN PRN 03/26/17 Dextroamphetamine/Amphetamine 30 mg PO BID 03/26/17 [Adderall 30 mg Tablet] Divalproex Sodium [Depakote] 125 mg PO BIDCM 03/26/17 Gabapentin [Neurontin] 400 mg PO BIDCM 03/26/17 Diazepam [Valium] 5 mg PO 4X/DAY PRN PRN #30 tab 04/03/17 Oxycodone HCl/Acetaminophen 1 - 2 tab PO 4X/DAY #50 04/03/17 [Percocet 7.5-325 mg Tablet] Docusate Sodium [Stool Softener] 100 mg PO DAILY 09/02/17 Mometasone/Formoterol [Dulera 100 1 puff INHALATION BID 02/01/18 Mcg/5 Mcg Inhaler] Surgical History: Surgical History (Last Reviewed 02/01/18 @ 04:37 by Juan Manuel Stack DO) History of abdominoplasty Z98.890 History of bilateral carpal tunnel release Z98.890 History of hemiarthroplasty of right shoulder Z98.890 History of laparoscopic cholecystectomy Z98.890, Z90.49 History of left oophorectomy Z98.890, Z90.721 History of nasal surgery Z98.890 History of reconstruction of both breasts Z98.890 History of right knee surgery Z98.890 X 2 S/P partial hysterectomy Z90.711 Surgical History: cholecystectomy, hysterectomy, - - Bilateral carpal tunnel surgery, hemiarthroplasty of the right shoulder, reconstruction of both breasts , abdominoplasty, right knee surgery, nasal surgery, insertion of bladder pacemaker Psychiatric History: Attn. 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 Denies: Nausea, Melena, Vomiting Genitourinary: Denies: Dysuria Musculoskeletal: Denies: Joint Tenderness Skin: Denies: Jaundice Neurological: Denies: Numbness Hematologic/ Lymphatic: Denies: Anemia Patient Problems: Active and Suspected Problems (Last Updated 02/01/18 @ 04:44 by Juan Manuel Stack DO) Abdominal wall redness (Acute) Shortness of breath (Acute) - Physical Exam General: Alert, Oriented x3, Cooperative HEENT: Atraumatic, PERRLA Neck: No JVD Lungs: Normal air movement Cardiovascular: Regular rate, Regular Rhythm Abdomen: - - Abdomen is soft, nondistended. She does have cellulitis of the abdomen that extends from midline to the left flank. There is blanching but it does not appear to be spreading beyond the marked it was made yesterday. Vital Signs Temp Pulse Resp BP Pulse Ox 98.9 F 85 16 119/54 L 98 02/02/18 08:00 02/02/18 08:00 02/02/18 08:00 02/02/18 08:00 02/02/18 08:00 Oxygen Delivery Method Room Air Weight: 240 lb 8.389 oz Body Mass Index (BMI) 38.6 Intake and Output for Last 24 Hours 01/31/18 02/01/18 02/02/18 23:59 23:59 23:59 Intake Total 4327 / 4327 1200 / 1200 Output Total 1200 / 1200 600 / 600 Balance 3127 / 3127 600 / 600 Laboratory Tests Past 24 Hrs 02/01/18 02/02/18 02/02/18 09:37 05:56 05:56 WBC 10.0 RBC 4.23 Hgb 11.9 L Hct 35.9 L MCV 84.9 MCH 28.1 MCHC 33.1 RDW 14.2 RDW Differential 43.2 Plt Count 162 MPV 10.8 Immature Gran % (Auto) 0.100 Neut % (Auto) 73.8 H Lymph % (Auto) 15.4 L [place] % (Auto) 10.1 H Eos % (Auto) 0.4 Baso % (Auto) 0.2 Absolute Neuts (auto) 7.4 Absolute Lymphs (auto) 1.54 Total Counted Not Reportable Sodium 139 Potassium 3.7 Chloride 108 H Carbon Dioxide 23.0 Anion Gap 8 BUN 13 Creatinine 0.91 Estim Creat Clear Calc 67.70 Est GFR (MDRD) Af Amer 83 Est GFR (MDRD) Non-Af 69 BUN/Creatinine Ratio 14.3 Glucose 94 Calcium 8.1 L MRSA (PCR) Negative Clinical Impression(s) from Imaging Studies Abdomen/Pelvis CT 02/01/18 00:05 IMPRESSION: About a 10 cm area of cellulitis in the left flank. No acute findings in the abdomen or pelvis. Specifically there is no acute appendicitis or diverticulitis. Electronically Signed: Darren Renee, at 1:27 EDT Tel , Service support , Assessment/Plan All Active Problems (Last Updated 02/01/18 @ 04:44 by Juan Manuel Stack DO) Seroma, postoperative (Resolved) Abdominal wall redness (Acute) Shortness of breath (Acute) Atypical chest pain (Resolved) 52-year-old female with abdominal wall cellulitis 1. The patient has cellulitis. Her white count is improving in response to the antibiotics. 2. The patient had a CT scan which showed postoperative changes but no drainable fluid collection. The patient does not have a mesh infection as she has no abdominal wall mesh. Her hernia was fixed with tissue alone. 3. Continue antibiotics. Okay for conversion to p.o. antibiotics and discharged home when okay with the primary team. No surgical indications at this time. Karl Nguyen MD Pager: [facility] [address] [place] [address], [address] [place] [address] Office:
[2018-02-02] MEDS: DiphenhydrAMINE 25 MG Capsule PO (09:42)
[2018-02-02] MEDS: Polyethylene Glycol 3350 17 GM PACKET PO (09:42)
[2018-02-02] MEDS: Senna/Docusate Sodium 1 Tablet 2 TABLET PO ×2 (09:42→21:17)
--- NOTE | 2018-02-02 12:56 | NURSING ---
wound photo: abdomen
--- NOTE | 2018-02-02 13:01 | CON.PCM_ITS ---
Problem List (1) Abdominal wall redness Status: Acute Reason for Consult: cellulitis Consulted by: Dr. Burrell History of Present Illness: The patient is a 52 year old F with recurrent abd wall infection since having tummy tuck several years ago. Sx returned a day prior to admission with mild pain, associated nausea. No drainage, no fever. No recent abx. Came to ED, admitted on iv abx. CT done, surgery consulted. Feeling better this AM. MRSA pcr neg. Full ROS performed and neg except as noted above. - Medical History Past Medical History (Chronic Problems): Chronic Problems (Last Updated 02/01/18 @ 04:44 by Juan Manuel Stack DO) Depression (Chronic) Anxiety (Chronic) ADHD (attention deficit hyperactivity disorder), combined type (Chronic) Chronic back pain (Chronic) Abdominal wall abscess at site of surgical wound (Chronic) Allergies/Adverse Reactions: Allergies ibuprofen Allergy (Verified 01/31/18 23:05) Angioedema latex Allergy (Verified 01/31/18 23:05) Rash pineapple [Pineapple] Allergy (Verified 01/31/18 23:05) Anaphylaxis lorazepam [From Ativan] Adverse Reaction (Verified 01/31/18 23:05) Upset Stomach naproxen sodium [From Aleve] Adverse Reaction (Verified 01/31/18 23:05) Other Home Medications: Ambulatory Orders Medication Instructions Recorded Citalopram [Celexa] 20 mg PO DAILY 01/18/14 Loratadine [Claritin] 10 mg PO DAILY 01/18/14 Albuterol Inhaler [Ventolin Hfa] 2 puff INHALATION Q4H PRN PRN 03/26/17 Dextroamphetamine/Amphetamine 30 mg PO BID 03/26/17 [Adderall 30 mg Tablet] Divalproex Sodium [Depakote] 125 mg PO BIDCM 03/26/17 Gabapentin [Neurontin] 400 mg PO BIDCM 03/26/17 Diazepam [Valium] 5 mg PO 4X/DAY PRN PRN #30 tab 04/03/17 Oxycodone HCl/Acetaminophen 1 - 2 tab PO 4X/DAY #50 04/03/17 [Percocet 7.5-325 mg Tablet] Docusate Sodium [Stool Softener] 100 mg PO DAILY 09/02/17 Mometasone/Formoterol [Dulera 100 1 puff INHALATION BID 02/01/18 Mcg/5 Mcg Inhaler] - Social History SMOKING STATUS:: Never smoker Vital Signs Temp Pulse Resp BP Pulse Ox 98.9 F 79 16 119/54 L 98 02/02/18 08:00 02/02/18 11:35 02/02/18 08:00 02/02/18 08:00 02/02/18 08:00 Oxygen Delivery Method Room Air Weight: 109.1 kg Body Mass Index (BMI) 38.6 Microbiology Past 72 Hours 02/01/18 09:37 Gram Stain - Final Wound - Abdominal Wound Culture - Preliminary Staphylococcus aureus Laboratory Tests Past 24 Hrs 02/02/18 02/02/18 05:56 05:56 WBC 10.0 RBC 4.23 Hgb 11.9 L Hct 35.9 L MCV 84.9 MCH 28.1 MCHC 33.1 RDW 14.2 RDW Differential 43.2 Plt Count 162 MPV 10.8 Immature Gran % (Auto) 0.100 Neut % (Auto) 73.8 H Lymph % (Auto) 15.4 L [place] % (Auto) 10.1 H Eos % (Auto) 0.4 Baso % (Auto) 0.2 Absolute Neuts (auto) 7.4 Absolute Lymphs (auto) 1.54 Total Counted Not Reportable Sodium 139 Potassium 3.7 Chloride 108 H Carbon Dioxide 23.0 Anion Gap 8 BUN 13 Creatinine 0.91 Estim Creat Clear Calc 67.70 Est GFR (MDRD) Af Amer 83 Est GFR (MDRD) Non-Af 69 BUN/Creatinine Ratio 14.3 Glucose 94 Calcium 8.1 L - Other Studies Radiology: [] reviewed Other Studies: [] Route of nutrition/ use of supplements: [] Nutritional Intake: [] IV Site: [] Kimbrough Catheter: [] - Physical Exam General: Alert, Oriented x3, Cooperative, No apparent distress HEENT: Atraumatic, PERRLA, EOMI Neck: Supple, No Nodes Lungs: Clear to auscultation, Normal air movement Cardiovascular: Regular rate, Regular Rhythm, No murmurs Abdomen: Bowel Sounds Present, Soft, Non-Distended, - - mild diffuse tenderness Skin: Ulcer/ Wound - small shallow lower abd wound with surrounding mild redness and warmth IV Site: Peripheral, without redness Musculoskeletal: No Tenderness to Palpation of Joints or Extremities Neurological: Cranial nerves II-XII grossly intact - Assessment/Plan Antibiotics: [] Assessment/Plan: [] Active and Suspected Problems (Last Updated 02/01/18 @ 04:44 by Juan Manuel Stack DO) Abdominal wall redness (Acute) Shortness of breath (Acute) MSSA abd wall cellulitis - no abscess seen on CT, wbc and lactate much improved. Stop vanc, continue cefazolin. MRSA pcr neg. Ok for d/c home on po keflex 500mg tid for 10 more days. Will follow, thank you.
--- NOTE | 2018-02-02 14:10 | CASEMGMT ---
Face to Face with patient for initial transition planning/care coordination assessment. RN CECILIO introduced self and role at [facility], pt voices understanding and consents to assessment at this time. Pt is lying in bed in no distress at this time. Pt is A/O x4 at this time and answers all questions appropriately at this time. Care providers, pharmacy, and demographics verified. See attached link. Pt voices no further concerns/needs at this time. Advised pt to ask for CM if any further questions/concerns/needs arise, voices understanding. CM to follow for any further discharge planning/needs. PLAN: [place] [facility]
--- NOTE | 2018-02-02 14:41 | PCM.PROGNOTE ---
<Tnoy Jauregui - Last Filed: 02/02/18 14:41> Patient Problems: Active and Suspected Problems (Last Updated 02/01/18 @ 04:44 by Juan Manuel Stack DO) Abdominal wall redness (Acute) Shortness of breath (Acute) Subjective: Pt continues to have some pain and warmth, no further fever or chills. She has no SOB, CP, no deeper abdominal pain. No dysuria. Mood appears stable. No LE edema. No open skin wounds. - Physical Exam General: Alert, Oriented x3, Cooperative, - - tongue protrusions HEENT: Atraumatic, PERRLA, EOMI, Normocephalic Neck: Supple, No JVD, Negative Carotid Bruits Lungs: Clear to auscultation, Normal air movement Cardiovascular: Regular rate, No murmurs Abdomen: Bowel Sounds Present, Soft, Non Tender, Obese Extremities: No edema, Capillary Refill Less than 3 Seconds Skin: - - bright red diffuse rash with warmth and mild tenderness lower abdomen. Musculoskeletal: No Tenderness to Palpation of Joints or Extremities Neurological: Cranial nerves II-XII grossly intact Psych/Mental Status: Normal Affect, Appropriate Vital Signs Temp Pulse Resp BP Pulse Ox 98.9 F 62 16 107/67 96 02/02/18 14:00 02/02/18 14:00 02/02/18 14:00 02/02/18 14:00 02/02/18 14:00 Oxygen Delivery Method Room Air Weight: 109.1 kg Body Mass Index (BMI) 38.6 Intake and Output for Last 24 Hours 01/31/18 02/01/18 02/02/18 23:59 23:59 23:59 Intake Total 4327 / 4327 2342 / 2342 Output Total 1200 / 1200 1200 / 1200 Balance 3127 / 3127 1142 / 1142 Microbiology Past 72 Hours 02/01/18 09:37 Gram Stain - Final Wound - Abdominal Wound Culture - Preliminary Staphylococcus aureus Laboratory Tests Past 24 Hrs 02/02/18 02/02/18 05:56 05:56 WBC 10.0 RBC 4.23 Hgb 11.9 L Hct 35.9 L MCV 84.9 MCH 28.1 MCHC 33.1 RDW 14.2 RDW Differential 43.2 Plt Count 162 MPV 10.8 Immature Gran % (Auto) 0.100 Neut % (Auto) 73.8 H Lymph % (Auto) 15.4 L Bradley % (Auto) 10.1 H Eos % (Auto) 0.4 Baso % (Auto) 0.2 Absolute Neuts (auto) 7.4 Absolute Lymphs (auto) 1.54 Total Counted Not Reportable Sodium 139 Potassium 3.7 Chloride 108 H Carbon Dioxide 23.0 Anion Gap 8 BUN 13 Creatinine 0.91 Estim Creat Clear Calc 67.70 Est GFR (MDRD) Af Amer 83 Est GFR (MDRD) Non-Af 69 BUN/Creatinine Ratio 14.3 Glucose 94 Calcium 8.1 L Medical Necessity - Tobacco Use Smoking Status: Never smoker Tobacco Use: Non-smoker Assessment/Plan All Active Problems (Last Updated 02/01/18 @ 04:44 by Juan Manuel Stack DO) Seroma, postoperative (Resolved) Abdominal wall redness (Acute) Shortness of breath (Acute) Atypical chest pain (Resolved) 1. Acute severe sepsis 2/2 MSSA cellulitis of abdominal wall - as evidenced by cellulitis, tachycardia, fever, leukocytosis, tachypnea, lactic acidosis present at admission. MRSA negative, wound culture with staph aureus. Recurrent infection since 2010 [facility] [place] with surgeon in [place] with post op seroma whom she no longer follows. Also prior hernia repair. Surgery does not feel that there is any indication for surgery. She does not appear to have an abscess or deeper structure involvement. Continue ancef with plan to switch to Keflex 500 TID for total of ten days per ID. Pulse improved, leukocytosis improved, fever resolved. Wound care nursing is following. 2. AYAAN - resolved. DC fluids. 3. Bipolar 1 - continue depakote, and other home meds. 4. Asthma - prn albuterol. DVT ppx: SCDs DC planning: possibly home tomorrow if continues to improve. PO abx planned. This patient was seen by Tony Jauregui PA-C under the supervision of Doctor Indra. <Shaq Burrell - Last Filed: 02/02/18 16:14> Subjective: Patient has abdominal wall cellulitis. On exam abdominal wall warm and erythematous. - Physical Exam Skin: - - bright red diffuse rash with warmth and mild tenderness lower abdomen. Lower midline wound is dry and chronic nature. Clinically, no palpable abscess Neurological: Neuro grossly intact Vital Signs Temp Pulse Resp BP Pulse Ox 98.9 F 75 16 107/67 96 02/02/18 14:00 02/02/18 15:06 02/02/18 14:00 02/02/18 14:00 02/02/18 14:00 Oxygen Delivery Method Room Air Weight: 240 lb 8.389 oz Body Mass Index (BMI) 38.6 Intake and Output for Last 24 Hours 01/31/18 02/01/18 02/02/18 23:59 23:59 23:59 Intake Total 4327 / 4327 2342 / 2342 Output Total 1200 / 1200 1200 / 1200 Balance 3127 / 3127 1142 / 1142 Microbiology Past 72 Hours 02/01/18 09:37 Gram Stain - Final Wound - Abdominal Wound Culture - Preliminary Staphylococcus aureus Laboratory Tests Past 24 Hrs 02/02/18 02/02/18 05:56 05:56 WBC 10.0 RBC 4.23 Hgb 11.9 L Hct 35.9 L MCV 84.9 MCH 28.1 MCHC 33.1 RDW 14.2 RDW Differential 43.2 Plt Count 162 MPV 10.8 Immature Gran % (Auto) 0.100 Neut % (Auto) 73.8 H Lymph % (Auto) 15.4 L Bradley % (Auto) 10.1 H Eos % (Auto) 0.4 Baso % (Auto) 0.2 Absolute Neuts (auto) 7.4 Absolute Lymphs (auto) 1.54 Total Counted Not Reportable Sodium 139 Potassium 3.7 Chloride 108 H Carbon Dioxide 23.0 Anion Gap 8 BUN 13 Creatinine 0.91 Estim Creat Clear Calc 67.70 Est GFR (MDRD) Af Amer 83 Est GFR (MDRD) Non-Af 69 BUN/Creatinine Ratio 14.3 Glucose 94 Calcium 8.1 L Assessment/Plan This patient was seen in conjunction with Tony TOBAR. I have independently interviewed and examined the patient and reviewed pertinent history, examination findings, laboratory and plan of management. I have reviewed the note and agree with the documented findings with the few additional points. In brief, patient is admitted for abdominal wall emesis colitis. She has recurrent abdominal wall infection since 2010 after Tummy-tuck surgery. Last infection was in July 2017 prior to this episode. General surgery note reviewed. No indication for surgery. Patient does not recall mesh repair but as per the surgery note, no mesh was used. On IV Ancef. I have discussed my assessment with Tony TOBAR and orders have been reviewed. Code Visit Inpatient E&M: 39974 Subs Hosp L3
[2018-02-02] MEDS: oxyCODONE 5 MG Tablet 10 MG PO (14:47)
--- NOTE | 2018-02-02 15:45 | CASEMGMT ---
SW gave patient copies of advance directives. FLORENCIA told her if she would like to fill them out or has questions she can ask for SW. April FERNANDEZ MSW
[2018-02-02] MEDS: 0.9% NaCl Peripheral Flush Adult/Peds IV (21:19)
[2018-02-03 03:01] VITALS: BP 100/55; PULSE 77; RESP 16; TEMP 36.6; O2SAT 99
[2018-02-03 03:05] VITALS: PULSE 76
[2018-02-03] MEDS: Cephalexin 500 MG Capsule PO (05:33)
[2018-02-03 07:14] VITALS: PULSE 75
[2018-02-03 09:21] VITALS: BP 118/66; PULSE 90; RESP 18; TEMP 37.2; O2SAT 94
[2018-02-03] MEDS: oxyCODONE 5 MG Tablet 10 MG PO (09:33)
[2018-02-03] MEDS: Citalopram 20 MG Tablet PO (09:34)
[2018-02-03] MEDS: Senna/Docusate Sodium 1 Tablet 2 TABLET PO (09:34)
[2018-02-03] MEDS: Divalproex Sodium 125 MG Tablet PO (09:34)
[2018-02-03] MEDS: Gabapentin 800 MG Tablet PO (09:34)
[2018-02-03] MEDS: Loratadine 10 MG Tablet PO (09:34)
[2018-02-03] MEDS: Polyethylene Glycol 3350 17 GM PACKET PO (09:39)
--- NOTE | 2018-02-03 10:55 | PCM.PN.ID ---
Patient Problems: Active and Suspected Problems (Last Updated 02/01/18 @ 04:44 by Juan Manuel Stack DO) Abdominal wall redness (Acute) Shortness of breath (Acute) Subjective: Feeling much better, abd soreness improved, no fever, no nausea. - Physical Exam General: Alert, Cooperative, No apparent distress Lungs: Clear to auscultation, Normal air movement Cardiovascular: Regular rate, Regular Rhythm Abdomen: Soft, Non Tender, Non-Distended Skin: Rash Present - abd erythema fading Vital Signs Temp Pulse Resp BP Pulse Ox 98.9 F 90 18 118/66 94 02/03/18 09:21 02/03/18 09:21 02/03/18 09:21 02/03/18 09:21 02/03/18 09:21 Oxygen Delivery Method Room Air Weight: 109.1 kg Body Mass Index (BMI) 38.6 Intake and Output for Last 24 Hours 02/01/18 02/02/18 02/03/18 23:59 23:59 23:59 Intake Total 4327 / 4327 3780 / 3780 360 / 360 Output Total 1200 / 1200 2300 / 2300 1000 / 1000 Balance 3127 / 3127 1480 / 1480 -640 / -640 Microbiology Past 72 Hours 02/01/18 09:37 Gram Stain - Final Wound - Abdominal Wound Culture - Preliminary Staphylococcus aureus Medical Necessity - Tobacco Use Smoking Status: Never smoker Tobacco Use: Non-smoker Route of nutrition/ use of supplements: [] Nutritional Intake: [] IV Site: [] Kimbrough Catheter: [] - Assessment/Plan Antibiotics: [] Assessment/Plan: [] Active and Suspected Problems (Last Updated 02/01/18 @ 04:44 by Juan Manuel Stack DO) Abdominal wall redness (Acute) Shortness of breath (Acute) MSSA abd wall cellulitis - no abscess seen on CT, wbc and lactate much improved. MRSA pcr neg. Ok for d/c home on po keflex 500mg tid for 10 more days. Rash much improved today Will follow.
[2018-02-03 11:18] VITALS: PULSE 70
--- NOTE | 2018-02-03 11:34 | PCM.DC ---
- Discharge Diagnoses Current Active Problems: Current Active and Chronic Problems (Last Updated 02/01/18 @ 04:44 by Juan Manuel Stack DO) Abdominal wall redness (Acute) Shortness of breath (Acute) You will use the following diet at home:: No restrictions Your food should be the consistency of: Regular Your liquids should be the consistency of: Regular/Thin Discharge Activity: Return to Normal Activity Allergies/Adverse Reactions: Allergies ibuprofen Allergy (Verified 01/31/18 23:05) Angioedema latex Allergy (Verified 01/31/18 23:05) Rash pineapple [Pineapple] Allergy (Verified 01/31/18 23:05) Anaphylaxis lorazepam [From Ativan] Adverse Reaction (Verified 01/31/18 23:05) Upset Stomach naproxen sodium [From Aleve] Adverse Reaction (Verified 01/31/18 23:05) Other Medications to take at Discharge Citalopram [Celexa] 20 mg PO DAILY 01/18/14 Loratadine [Claritin] 10 mg PO DAILY 01/18/14 Albuterol Inhaler [Ventolin Hfa] 2 puff INHALATION Q4H PRN PRN 03/26/17 Dextroamphetamine/Amphetamine [Adderall 30 mg Tablet] 30 mg PO BID 03/26/17 Divalproex Sodium [Depakote] 125 mg PO BIDCM 03/26/17 Gabapentin [Neurontin] 400 mg PO BIDCM 03/26/17 Diazepam [Valium] 5 mg PO 4X/DAY PRN PRN #30 tab 04/03/17 Oxycodone HCl/Acetaminophen [Percocet 7.5-325 mg Tablet] 1 - 2 tab PO 4X/DAY #50 04/03/17 Docusate Sodium [Stool Softener] 100 mg PO DAILY 09/02/17 Mometasone/Formoterol [Dulera 100 Mcg/5 Mcg Inhaler] 1 puff INHALATION BID 02/01/18 Cephalexin [Keflex] 500 mg PO Q8 #29 cap 02/03/18 The following prescriptions were given: Cephalexin [Keflex] 500 mg PO Q8 #29 cap Primary Care Physician: Juan Manuel Carbajal DO [Primary Care Provider] - Please follow up with your Primary Care Physician in: 1-2 weeks Test Results: Please Follow Up With: Camilo Newman MD When: 2 weeks Proposed Discharge Date: 02/03/18
--- NOTE | 2018-02-03 11:38 | DCINST_ITS ---
- Discharge Diagnoses Current Active Problems: Current Active and Chronic Problems (Last Updated 02/01/18 @ 04:44 by Juan Manuel Stack DO) Abdominal wall redness (Acute) Shortness of breath (Acute) You will use the following diet at home:: No restrictions Your food should be the consistency of: Regular Your liquids should be the consistency of: Regular/Thin Discharge Activity: Return to Normal Activity Allergies/Adverse Reactions: Allergies ibuprofen Allergy (Verified 01/31/18 23:05) Angioedema latex Allergy (Verified 01/31/18 23:05) Rash pineapple [Pineapple] Allergy (Verified 01/31/18 23:05) Anaphylaxis lorazepam [From Ativan] Adverse Reaction (Verified 01/31/18 23:05) Upset Stomach naproxen sodium [From Aleve] Adverse Reaction (Verified 01/31/18 23:05) Other Medications to take at Discharge Citalopram [Celexa] 20 mg PO DAILY 01/18/14 Loratadine [Claritin] 10 mg PO DAILY 01/18/14 Albuterol Inhaler [Ventolin Hfa] 2 puff INHALATION Q4H PRN PRN 03/26/17 Dextroamphetamine/Amphetamine [Adderall 30 mg Tablet] 30 mg PO BID 03/26/17 Divalproex Sodium [Depakote] 125 mg PO BIDCM 03/26/17 Gabapentin [Neurontin] 400 mg PO BIDCM 03/26/17 Diazepam [Valium] 5 mg PO 4X/DAY PRN PRN #30 tab 04/03/17 Oxycodone HCl/Acetaminophen [Percocet 7.5-325 mg Tablet] 1 - 2 tab PO 4X/DAY # 50 04/03/17 Docusate Sodium [Stool Softener] 100 mg PO DAILY 09/02/17 Mometasone/Formoterol [Dulera 100 Mcg/5 Mcg Inhaler] 1 puff INHALATION BID 02/01 Cephalexin [Keflex] 500 mg PO Q8 #29 cap 02/03/18 The following prescriptions were given: Cephalexin [Keflex] 500 mg PO Q8 #29 cap Primary Care Physician: Juan Manuel Carbajal DO [Primary Care Provider] - Please follow up with your Primary Care Physician in: 1-2 weeks Test Results: Please Follow Up With: Camilo Newman MD When: 2 weeks Proposed Discharge Date: 02/03/18
--- NOTE | 2018-02-03 14:24 | PCM.DC.SUM ---
<Tony Jauregui - Last Filed: 02/03/18 14:24> Discharge Date and Diagnosis Date of Admission: 02/01/18 Date of Discharge: 02/03/18 - Primary Discharge Diagnosis Acute severe sepsis 2/2 recurrent abdominal wall cellulitis 2/2 MSSA AYAAN resolved Bipolar 1 Asthma Obesity - Secondary Discharge Diagnosis Chronic Problems (Last Updated 02/01/18 @ 04:44 by Juan Manuel Stack DO) Depression (Chronic) Anxiety (Chronic) ADHD (attention deficit hyperactivity disorder), combined type (Chronic) Chronic back pain (Chronic) Abdominal wall abscess at site of surgical wound (Chronic) Hospital Course and Treatment Imaging Results: CT/Abdomen/Pelvis without Cont IMPRESSION: About a 10 cm area of cellulitis in the left flank. No acute findings in the abdomen or pelvis. Specifically there is no acute appendicitis or diverticulitis. Consultations ID - Paty Gen Surgery - Patrick 02/01/18 05:54 Consult: Onc/Wound/environmental services lead Routine Comment: Reason for Consult:: Lower abdominal wounds Operations: None Procedures: None Summary of Care Provided: Physical exam on day of discharge: General: Resting comfortably NAD Psych: A/Ox3 normal affect HEENT: PEARRLA AT NC Neck: Supple NT CV: RRR no m/t/r/g/h Resp: CTA Abd: [id number] Soft NT no guarding or rigidity Ext: DP2+= no edema Skin: W/D normal turgor Lymph/Heme: No active bleeding or adenopathy Neuro: CN2-12 intact Hospital course: The patient is a 52 year old F with a hx of recurrent abdominal wall cellulitis following a 2010 tummy tuck procedure with postop seroma, also with a hx of bipolar 1, obesity, who presented to the ER with increased redness and SOB. She appeared to have acute severe sepsis as evidenced by fever, tachycardia, tachypnea, lactic acidosis, and leukocytosis. She was placed on vanc and ancef and admitted to the PCU. She also had AYAAN which resolved with IV NaCl administration. Gen surgery was consulted who did not feel there were any indications for surgery. CT abdomen was done with no deeper structure involvement. Wound care was consulted. As this was a multiple recurring infection infectious disease was consulted. Wound culture showed MSSA. Blood cultures were negative at 48 hours. She was transitioned to Keflex 500 TID for 10 more days as per ID recommendation. She was discharged home in stable condition and advised to follow up with PCP and with ID. This patient was seen by Tony Jauregui PA-C under the supervision of Doctor Indra. [] Discharge Diet: No Restrictions Discharge Activity: Return to Normal Activity Home Medications: Medications to take at Discharge Citalopram [Celexa] 20 mg PO DAILY 01/18/14 Loratadine [Claritin] 10 mg PO DAILY 01/18/14 Albuterol Inhaler [Ventolin Hfa] 2 puff INHALATION Q4H PRN PRN 03/26/17 Dextroamphetamine/Amphetamine [Adderall 30 mg Tablet] 30 mg PO BID 03/26/17 Divalproex Sodium [Depakote] 125 mg PO BIDCM 03/26/17 Gabapentin [Neurontin] 400 mg PO BIDCM 03/26/17 Diazepam [Valium] 5 mg PO 4X/DAY PRN PRN #30 tab 04/03/17 Oxycodone HCl/Acetaminophen [Percocet 7.5-325 mg Tablet] 1 - 2 tab PO 4X/DAY #50 04/03/17 Docusate Sodium [Stool Softener] 100 mg PO DAILY 09/02/17 Mometasone/Formoterol [Dulera 100 Mcg/5 Mcg Inhaler] 1 puff INHALATION BID 02/01/18 Cephalexin [Keflex] 500 mg PO Q8 #29 cap 02/03/18 Following Prescrptions Were Given to Patient: Cephalexin [Keflex] 500 mg PO Q8 #29 cap Primary Care Physician: Juan Manuel Carbajal DO [Primary Care Provider] - Please follow up with your Primary Care Physician in: 1-2 weeks Please Follow Up With: Camilo Newman MD When: 2 weeks Disposition: Home Minutes spent on discharge:: 35 Patient Condition:: Stable Medical Necessity - Tobacco Use Smoking Status: Never smoker Tobacco Use: Non-smoker Meaningful Use Info Meaningful Use Diagnoses (Choose all that apply): None applicable <Shaq Burrell - Last Filed: 02/03/18 14:58> Discharge Date and Diagnosis - Secondary Discharge Diagnosis Chronic Problems (Last Updated 02/01/18 @ 04:44 by Juan Manuel Stack DO) Depression (Chronic) Anxiety (Chronic) ADHD (attention deficit hyperactivity disorder), combined type (Chronic) Chronic back pain (Chronic) Abdominal wall abscess at site of surgical wound (Chronic) Hospital Course and Treatment Consultations 02/01/18 05:54 Consult: Onc/Wound/environmental services lead Routine Comment: Reason for Consult:: Lower abdominal wounds Summary of Care Provided: This patient was seen in conjunction with Tony TOBAR. I have independently interviewed and examined the patient and reviewed pertinent history, examination findings, laboratory and plan of management. I have reviewed the note and agree with the documented findings with the few additional points. In brief, patient is admitted for abdominal wall cellulitis. She has recurrent abdominal wall infection/cellulitis since 2010 after Tummy-tuck surgery. Last infection was in July 2017 prior to this episode. General surgery note reviewed. No indication for surgery. Patient does not recall mesh repair but as per the surgery note, no mesh was used. Patient was seen and examined today General: Alert, Oriented x3, Cooperative HEENT: Atraumatic, PERRLA, EOMI, Normocephalic Neck: Supple, No JVD, Negative Carotid Bruits Lungs: Clear to auscultation, Normal air movement Cardiovascular: Regular rate, No murmurs Abdomen: Bowel Sounds Present, Soft, Non Tender, Obese Extremities: No edema, Capillary Refill Less than 3 Seconds Skin: -Bright red erythematous rash and tenderness, much improved and almost resolved. Lower midline wound is dry and chronic nature. Clinically, no palpable abscess Musculoskeletal: No Tenderness to Palpation of Joints or Extremities Neurological: Cranial nerves II-XII grossly intact Psych/Mental Status: Normal Affect, Appropriate Patient initially treated with IV Ancef. Wound culture positive of MSSA. Patient seen by ID and recommended 10 more days of Keflex 500 mg 3 times daily. Discharge medication reconciliation done. Discharge follow-up instructions completed and discussed with the patient. Total time spent, exact 35 minutes on discharge meds reconciliation, examination, review of imaging and blood test and discussion with the patient on follow-up instructions. I have discussed my assessment with Tony TOBAR and orders have been reviewed. [] Code Visit Inpatient E&M: 10741 Disch Hosp
--- NOTE | 2018-02-03 14:32 | DS.PCM_ITS ---
<Tony Jauregui - Last Filed: 02/03/18 14:24> Discharge Date and Diagnosis Date of Admission: 02/01/18 Date of Discharge: 02/03/18 - Primary Discharge Diagnosis Acute severe sepsis 2/2 recurrent abdominal wall cellulitis 2/2 MSSA AYAAN resolved Bipolar 1 Asthma Obesity - Secondary Discharge Diagnosis Chronic Problems (Last Updated 02/01/18 @ 04:44 by Juan Manuel Stack DO) Depression (Chronic) Anxiety (Chronic) ADHD (attention deficit hyperactivity disorder), combined type (Chronic) Chronic back pain (Chronic) Abdominal wall abscess at site of surgical wound (Chronic) Hospital Course and Treatment Imaging Results: CT/Abdomen/Pelvis without Cont IMPRESSION: About a 10 cm area of cellulitis in the left flank. No acute findings in the abdomen or pelvis. Specifically there is no acute appendicitis or diverticulitis. Consultations ID - Paty Gen Surgery - Patrick 02/01/18 05:54 Consult: Onc/Wound/corrugated sheet material sheeter Routine Comment: Reason for Consult:: Lower abdominal wounds Operations: None Procedures: None Summary of Care Provided: Physical exam on day of discharge: General: Resting comfortably NAD Psych: A/Ox3 normal affect HEENT: PEARRLA AT NC Neck: Supple NT CV: RRR no m/t/r/g/h Resp: CTA Abd: [id number] Soft NT no guarding or rigidity Ext: DP2+= no edema Skin: W/D normal turgor Lymph/Heme: No active bleeding or adenopathy Neuro: CN2-12 intact Hospital course: The patient is a 52 year old F with a hx of recurrent abdominal wall cellulitis following a 2010 tummy tuck procedure with postop seroma, also with a hx of bipolar 1, obesity, who presented to the ER with increased redness and SOB. She appeared to have acute severe sepsis as evidenced by fever, tachycardia, tachypnea, lactic acidosis, and leukocytosis. She was placed on vanc and ancef and admitted to the PCU. She also had AYAAN which resolved with IV NaCl administration. Gen surgery was consulted who did not feel there were any indications for surgery. CT abdomen was done with no deeper structure involvement. Wound care was consulted. As this was a multiple recurring infection infectious disease was consulted. Wound culture showed MSSA. Blood cultures were negative at 48 hours. She was transitioned to Keflex 500 TID for 10 more days as per ID recommendation. She was discharged home in stable condition and advised to follow up with PCP and with ID. This patient was seen by Tony Jauregui PA-C under the supervision of Doctor Indra. [] Discharge Diet: No Restrictions Discharge Activity: Return to Normal Activity Home Medications: Medications to take at Discharge Citalopram [Celexa] 20 mg PO DAILY 01/18/14 Loratadine [Claritin] 10 mg PO DAILY 01/18/14 Albuterol Inhaler [Ventolin Hfa] 2 puff INHALATION Q4H PRN PRN 03/26/17 Dextroamphetamine/Amphetamine [Adderall 30 mg Tablet] 30 mg PO BID 03/26/17 Divalproex Sodium [Depakote] 125 mg PO BIDCM 03/26/17 Gabapentin [Neurontin] 400 mg PO BIDCM 03/26/17 Diazepam [Valium] 5 mg PO 4X/DAY PRN PRN #30 tab 04/03/17 Oxycodone HCl/Acetaminophen [Percocet 7.5-325 mg Tablet] 1 - 2 tab PO 4X/DAY # 50 04/03/17 Docusate Sodium [Stool Softener] 100 mg PO DAILY 09/02/17 Mometasone/Formoterol [Dulera 100 Mcg/5 Mcg Inhaler] 1 puff INHALATION BID 02/01 Cephalexin [Keflex] 500 mg PO Q8 #29 cap 02/03/18 Following Prescrptions Were Given to Patient: Cephalexin [Keflex] 500 mg PO Q8 #29 cap Primary Care Physician: Juan Manuel Carbajal DO [Primary Care Provider] - Please follow up with your Primary Care Physician in: 1-2 weeks Please Follow Up With: Camilo Newman MD When: 2 weeks Disposition: Home Minutes spent on discharge:: 35 Patient Condition:: Stable Medical Necessity - Tobacco Use Smoking Status: Never smoker Tobacco Use: Non-smoker Meaningful Use Info Meaningful Use Diagnoses (Choose all that apply): None applicable <Shaq Burrell - Last Filed: 02/03/18 14:58> Discharge Date and Diagnosis - Secondary Discharge Diagnosis Chronic Problems (Last Updated 02/01/18 @ 04:44 by Juan Manuel Stack DO) Depression (Chronic) Anxiety (Chronic) ADHD (attention deficit hyperactivity disorder), combined type (Chronic) Chronic back pain (Chronic) Abdominal wall abscess at site of surgical wound (Chronic) Hospital Course and Treatment Consultations 02/01/18 05:54 Consult: Onc/Wound/corrugated sheet material sheeter Routine Comment: Reason for Consult:: Lower abdominal wounds Summary of Care Provided: This patient was seen in conjunction with Tony TOBAR. I have independently interviewed and examined the patient and reviewed pertinent history, examination findings, laboratory and plan of management. I have reviewed the note and agree with the documented findings with the few additional points. In brief, patient is admitted for abdominal wall cellulitis. She has recurrent abdominal wall infection/cellulitis since 2010 after Tummy-tuck surgery. Last infection was in July 2017 prior to this episode. General surgery note reviewed. No indication for surgery. Patient does not recall mesh repair but as per the surgery note, no mesh was used. Patient was seen and examined today General: Alert, Oriented x3, Cooperative HEENT: Atraumatic, PERRLA, EOMI, Normocephalic Neck: Supple, No JVD, Negative Carotid Bruits Lungs: Clear to auscultation, Normal air movement Cardiovascular: Regular rate, No murmurs Abdomen: Bowel Sounds Present, Soft, Non Tender, Obese Extremities: No edema, Capillary Refill Less than 3 Seconds Skin: -Bright red erythematous rash and tenderness, much improved and almost resolved. Lower midline wound is dry and chronic nature. Clinically, no palpable abscess Musculoskeletal: No Tenderness to Palpation of Joints or Extremities Neurological: Cranial nerves II-XII grossly intact Psych/Mental Status: Normal Affect, Appropriate Patient initially treated with IV Ancef. Wound culture positive of MSSA. Patient seen by ID and recommended 10 more days of Keflex 500 mg 3 times daily. Discharge medication reconciliation done. Discharge follow-up instructions completed and discussed with the patient. Total time spent, exact 35 minutes on discharge meds reconciliation, examination , review of imaging and blood test and discussion with the patient on follow-up instructions. I have discussed my assessment with Tony TOBAR and orders have been reviewed. [] Code Visit Inpatient E&M: 87575 Disch Hosp
== END 2018-02-03 13:05 | disposition home or self-care (01) | DRG 383 ==
LOC: ED 23:25 → PCU 02-01 03:06
PROVIDERS: Hospitalist; Admitting Provider Internal Medicine; Emergency Provider Emergency Medicine; Family Provider Family Medicine; PCP Family Medicine; Visit Provider Internal Medicine
DX: L03.311 Cellulitis of abdominal wall (principal); E87.2 Acidosis; R65.20 Severe sepsis without septic shock; B95.61 Methicillin susceptible Staphylococcus aureus infection as the cause of diseases classified elsewhere; F31.9 Bipolar disorder, unspecified; J45.909 Unspecified asthma, uncomplicated; E66.9 Obesity, unspecified; Z68.38 Body mass index [BMI] 38.0-38.9, adult; F90.2 Attention-deficit hyperactivity disorder, combined type; M54.9 Dorsalgia, unspecified; G89.29 Other chronic pain
CPT/HCPCS: 36415; 74176; 80048; 80053; 81002; 83605; 85025; 85610; 87040; 87070; 87077; 87186; 87205; 87641; 94640; 99283; J7030; J7050; A4216; J2405

== ENCOUNTER → 2018-03-17 12:01 | Outpatient (CLI) | payer MEDICAID, SELFPAY | PROVIDERS: Family Provider Family Medicine; PCP Family Medicine; Visit Provider Family Medicine | DX: M25.551 Pain in right hip (principal) | CPT/HCPCS: 73502 ==

== ENCOUNTER → 2018-08-12 12:51 | Outpatient (CLI) | payer MEDICAID, SELFPAY ==
--- NOTE | 2018-08-12 13:07 | BI_ITS ---
MAMMOGRAPHY - BILATERAL SCREENING REASON FOR EXAM: Female, 53 years old. Routine annual screening examination. PERTINENT HISTORY: Grandmother with breast cancer. History of bilateral breast reduction. TECHNIQUE: Digital bilateral breast mikhail (3D mammographic acquisition) in the CC and MLO projections. 2-D mediolateral oblique (MLO) and craniocaudad (CC) views of both breasts were obtained. CAD: Full Field Digital Mammography with Computer Added Detection was performed. COMPARISON: Comparison is made with prior study dated April 06, 2009. FINDINGS: Breast Composition: There are scattered areas of fibroglandular density. There are no dominant masses or suspicious calcifications. No other significant abnormalities are identified. There has been no significant change since the prior study. BI/SCREENING MAMM (CAD), BILAT IMPRESSION: Stable bilateral screening mammogram. Yearly follow-up mammogram recommended. (A) ASSESSMENT CATEGORY: BIRADS Category 1: Negative. A letter regarding these results will be sent to the patient by the facility within 30 days. Approximately 10% of breast cancers are not detected by mammography. A normal mammogram should not delay biopsy of a clinically suspicious abnormality. [id number] Electronically Signed: Ranjith Charles MD at 14:12 EST Tel [phone], Service support ,
== END ==
PROVIDERS: Family Provider Family Medicine; PCP Family Medicine; Referring Provider Family Medicine; Visit Provider Family Medicine
DX: Z12.31 Encounter for screening mammogram for malignant neoplasm of breast (principal)
CPT/HCPCS: 77062; 77063; 77067; G0279

== ENCOUNTER → 2018-09-11 13:42 | Outpatient (CLI) | payer MEDICAID, SELFPAY ==
[2018-09-11 16:01] LABS: Glucose 101 mg/dL (74-106)
[2018-09-11 16:04] LABS: Hemoglobin A1c 5.5 % (4.2-6.3)
== END ==
PROVIDERS: Family Provider Family Medicine; PCP Family Medicine; Visit Provider Family Medicine
DX: E16.2 Hypoglycemia, unspecified (principal)
CPT/HCPCS: 36415; 82947; 83036

== ENCOUNTER 2019-04-20 15:14 | Emergency (ER) | payer MEDICAID, SELFPAY ==
[2019-04-20 15:15] VITALS: BP 124/86; PULSE 112; RESP 16; TEMP 35.8; O2SAT 99; BMI 36.9
[2019-04-20 15:21] VITALS: BP 124/86; PULSE 112; RESP 17; TEMP 36.7; O2SAT 98
--- NOTE | 2019-04-20 15:26 | ED.VIS.GEN ---
History of Present Illness Chief Complaint: Diarrhea Informant: Patient Onset: Days Context: Gradual Onset Timing: Continuous Current Severity: Moderate Maximum Severity: Moderate Narrative: Patient presents to the emergency department abdominal pain, nausea, vomiting. She also had persistent loose watery diarrhea. She states that she ate at a restaurant on Friday. She states by Friday morning, she is having the symptoms. She states that she had profuse diarrhea. She states she has had about 10 episodes a day. She is been trying to eat and drink, but is been nauseated with some vomiting. She is unsure if she had fever but she does admit to chills. She denies any history of C. difficile, but did have recent hospitalization 2 months ago for an abdominal wall abscess and was on oral antibiotics. Patient has had multiple abdominal surgery. She has not found anything that improve the symptoms. Prior similar symptoms: No Recent Illness/Hospitalization: Yes Past Medical History - Allergies and Home Meds Allergies/Adverse Reactions: Allergies ibuprofen Allergy (Verified 01/31/18 23:05) Angioedema latex Allergy (Verified 01/31/18 23:05) Rash pineapple [Pineapple] Allergy (Verified 01/31/18 23:05) Anaphylaxis lorazepam [From Ativan] Adverse Reaction (Verified 01/31/18 23:05) Upset Stomach naproxen sodium [From Aleve] Adverse Reaction (Verified 01/31/18 23:05) Other Primary Care Physician: Juan Manuel Carbajal DO [Primary Care Provider] - Prior records reviewed: Yes Past Medical History: - Surgical History: cholecystectomy, hysterectomy, - - Bilateral carpal tunnel surgery, hemiarthroplasty of the right shoulder, reconstruction of both breasts, abdominoplasty, right knee surgery, nasal surgery, insertion of bladder pacemaker Lives: With Family Smoking Status: Never smoker - Family History Maternal Family History: Family History (Last Reviewed 10/03/17 @ 13:29 by Micheline Azar) Son Asthma Family History: Reports: No pertinent history Paternal Family History: Family History (Last Reviewed 10/03/17 @ 13:29 by Micheline Azar) Son Asthma Family History: Reports: Asthma Review of Systems General: Reports: Chills. Denies: Fever, Sweats Eyes: Denies: Visual changes - bilaterally, Diplopia ENT: Denies: Rhinorrhea, Sore throat Cardiovascular: Denies: Chest pain, Palpitations Respiratory: Denies: Dyspnea, Cough, Dyspnea on exertion Gastrointestinal: Reports: Nausea, Vomiting, Diarrhea. Denies: Abdominal pain, Melena, Hematochezia Genitourinary: Denies: Dysuria, Hematuria, Frequency Musculoskeletal: Denies: Back pain, Extremity Pain Skin: Denies: Rash, Wounds Neurological: Denies: Headache, Weakness, Numbness Physical Exam Vital Signs/Narrative: Vital Signs Temp Pulse Resp BP Pulse Ox 04/20/19 15:21 98.1 F 112 H 17 124/86 H 98 04/20/19 15:15 96.5 F L 112 H 16 124/86 H 99 Inital Vital Signs reviewed: Yes General: Well nourished, Well developed, No Acute Distress Head: Normocephalic, Atraumatic Eyes: Perrl, EOMI ENT: Moist mucous membranes, No rhinorrhea Neck: Supple, Nontender Cardiovascular: Regular rate, Regular rhythm, No murmurs Respiratory: No distress, CTA bilaterally, Chest nontender Abdomen: Soft, Nontender, Nondistended, Normal bowel sounds Back: Nontender, Normal Inspection Extremities: Nontender, No edema Skin: Normal color, No rash Neurological: Alert, Oriented x3, Cranial nerves II-XII grossly intact, Normal Strength, Normal Sensation Psychological: Normal affect, Normal Mood Diagnostic/Tx/Re-eval Abnormal Lab Results 04/20/19 04/20/19 04/20/19 15:29 15:29 15:43 WBC 6.5 RBC 5.07 Hgb 13.9 Hct 43.7 MCV 86.2 MCH 27.4 MCHC 31.8 L RDW Std Deviation 40.3 RDW Coeff of Janina 13.0 Plt Count 218 MPV 10.5 Immature Gran % (Auto) 0.200 Neut % (Auto) 60.1 Lymph % (Auto) 26.4 [place] % (Auto) 11.1 H Eos % (Auto) 2.0 Baso % (Auto) 0.2 Absolute Neuts (auto) 3.9 Absolute Lymphs (auto) 1.71 Nucleated RBC % 0 Sodium 137 Potassium 3.4 L Chloride 108 H Carbon Dioxide 24.0 Anion Gap 5 BUN 18 Creatinine 1.08 H Estim Creat Clear Calc 55.75 Est GFR (MDRD) Af Amer 68 Est GFR (MDRD) Non-Af 56 L BUN/Creatinine Ratio 16.7 Glucose 110 H Lactic Acid 1.1 Calcium 8.6 Total Bilirubin 0.80 AST 57 H ALT 35 Alkaline Phosphatase 62 Total Protein 8.1 Albumin 3.3 Globulin 4.8 H Albumin/Globulin Ratio 0.7 L Lipase 198 - Medical Decision Making The patient presents with nausea, vomiting, diarrhea after eating. Her abdomen is soft and nontender. Metabolic work-up was pursued. She has no evidence of acute kidney injury. Her white blood cells were normal. She was treated with fluids, analgesics, antiemetics. On reevaluation, she is feeling improved. Her C. difficile was negative. My suspicion is that this is likely viral. I am going to treat her supportively, pending the results of the enteric stool pathogens. The patient will be given prescriptions for antiemetics and antispasmodics. She will be discharged home. Impression 1. Gastroenteritis ED Disposition - Plan for ED Patient: Disposition: Home or Assisted Living Instructions: FOOD POISONING or GASTROENTERITIS (6y-Adult) Prescriptions: Dicyclomine HCl [Bentyl] 20 mg PO TIDAC #20 cap Prescription Printed Diphenoxylate/Atrop [Lomotil] 1 tab PO TID PRN PRN #15 tab PRN Reason: Diarrhea Prescription Printed Ondansetron [Zofran Odt] 4 mg PO Q8H PRN PRN #10 tab PRN Reason: Nausea Prescription Printed Referrals: Juan Manuel Carbajal DO [Primary Care Provider] -
[2019-04-20] MEDS: Morphine 4 MG/ML Syringe IV (15:42)
[2019-04-20] MEDS: 0.9% Normal Saline 1,000 ML 1000 ML IV (15:42)
[2019-04-20] MEDS: Ondansetron 4 MG/2 ML Vial IV (15:42)
[2019-04-20 15:53] LABS: ALB/GLOB Ratio 0.7 RATIO (0.9-2.4); AST(SGOT) 57 U/L (15-37); Alanine Aminotransfer ALT/SGPT 35 U/L (13-56); Albumin, Serum 3.3 g/dL (3.2-5.0); Alkaline Phosphatase 62 U/L (45-117); Anion Gap 5 (5-15); BUN 18 mg/dL (7-18); BUN/Creat Ratio 16.7 RATIO (10-20); Calcium,Total 8.6 mg/dL (8.5-10.1); Chloride 108 mmol/L (98-107); Creatinine, Serum 1.08 mg/dL (0.55-1.02); EST Glomerular Filtration Rate 56 mL/min (>60); Est Glom Filt Rate - Afr Amer 68 mL/min (>60); Estimated Creatinine Clearance 55.75 ml/min; Globulin 4.8 g/dL (2.2-4.2); Glucose 110 mg/dL (74-106); Lipase 198 U/L (73-393); Potassium 3.4 mmol/L (3.5-5.1); Protein, Total 8.1 g/dL (6.4-8.2); Sodium Level 137 mmol/L (136-145)
--- NOTE | 2019-04-20 15:53 | ED.RN ---
PT WITH ABDOMINAL ABSCESS SHE IS BEING TREATED FOR BY HER PCP. PT REPORTS REDNESS IS IMPROVING, BUT IT IS HARD TO KEEP COVERED BECAUSE OF THE SITE OF THE ABSCESS. PT HAS COMPLETED ANTIBIOTICS. PERIUMBILICAL ABSCESS, WITH REDDENED AREA AROUND. MINIMAL TENDERNESS. DENIES DRAINAGE.
[2019-04-20 16:06] LABS: Absolute Lymphocyte Count 1.71 X10^3/uL (0.83-4.51); Absolute Neutrophil Count 3.9 X10^3/uL (2.0-7.7); Basophil# 0.01 X10^3/uL; Basophil% 0.2 % (0-1); Eosinophil# 0.13 X10^3/uL; Hematocrit 43.7 % (37-47); Hemoglobin 13.9 g/dL (12.0-15.0); Lymphocyte # 1.71 X10^3/ul (4.0); Lymphocyte % 26.4 % (19-41); Mean Corp Hgb Conc 31.8 g/dL (32-36); Mean Corpuscular Hgb 27.4 pg (27.0-32.0); Mean Corpuscular Volume 86.2 fL (81-99); Mean Platelet Vol. 10.5 fl (6.2-12.0); Monocyte# 0.72 X10^3/uL; Monocyte% 11.1 % (0-10); NRBC Flagged by Analyzer 0 % (0-5); Neutrophil % 60.1 % (47-70); Platelet Count 218 K/mm3 (150-450); RBC Distribution Width SD 40.3 fl (35.1-43.9); Red Blood Count 5.07 M/mm3 (4.2-5.4); White Blood Count 6.5 K/mm3 (4.4-11.0)
--- NOTE | 2019-04-20 16:13 | ED.RN ---
PT ASSISTED UP TO BATHROOM, ATTEMPTED URINE AND STOOL SPECIMEN. PT UNABLE TO AT THIS TIME. WILL CONTINUE TO MONITOR.
[2019-04-20 16:22] LABS: Lactic Acid 1.1 mmol/L (0.4-2.0)
[2019-04-20 16:35] VITALS: BMI 37.0
[2019-04-20 16:36] VITALS: BP 119/76; PULSE 75; RESP 18; TEMP 36.7; O2SAT 98
[2019-04-20 18:15] VITALS: BP 125/74; PULSE 74; RESP 16; TEMP 36.7; O2SAT 98
== END 2019-04-20 18:27 | disposition home or self-care (01) ==
PROVIDERS: Emergency Provider Emergency Medicine; Family Provider Family Medicine; PCP Family Medicine
DX: K52.9 Noninfective gastroenteritis and colitis, unspecified (principal); Z79.899 Other long term (current) drug therapy; Z91.040 Latex allergy status; Z88.6 Allergy status to analgesic agent; Z90.710 Acquired absence of both cervix and uterus; Z90.49 Acquired absence of other specified parts of digestive tract; Z96.651 Presence of right artificial knee joint
CPT/HCPCS: 80053; 83605; 83690; 85025; 87493; 87506; 96361; 96374; 96375; 99282; J7030; A4216; J2405

== ENCOUNTER → 2020-12-25 14:39 | Outpatient (CLI) | payer MEDICAID, SELFPAY ==
--- NOTE | 2020-12-25 14:42 | BI_ITS ---
MAMMOGRAPHY - BILATERAL SCREENING REASON FOR EXAM: Female, 55 years old. Routine annual screening examination. PERTINENT HISTORY: Grandmother with breast cancer. History of prior bilateral breast reduction surgery. TECHNIQUE: Digital bilateral breast rachel (3D mammographic acquisition) in the CC and MLO projections. 2-D mediolateral oblique (MLO) and craniocaudad (CC) views of both breasts were obtained. CAD: Full Field Digital Mammography with Computer Added Detection was performed. COMPARISON: Comparison is made with prior examination dated 08/12/2018. FINDINGS: Breast Composition: The breasts are almost entirely fatty. There are no dominant masses or suspicious calcifications. No other significant abnormalities are identified. There has been no significant change since the prior study. BI/SCRN MAMM (CAD)W/RACHEL BILAT IMPRESSION: Stable bilateral screening mammogram. Yearly follow-up mammogram recommended. (A) ASSESSMENT CATEGORY: BIRADS Category 1: Negative. A letter regarding these results will be sent to the patient by the facility within 30 days. Approximately 10% of breast cancers are not detected by mammography. A normal mammogram should not delay biopsy of a clinically suspicious abnormality. [id number] Electronically Signed: Ranjith Charles MD at 15:47 EDT , Service support ,
== END ==
PROVIDERS: PCP Family Medicine; Referring Provider Family Medicine; Visit Provider Family Medicine
DX: Z12.31 Encounter for screening mammogram for malignant neoplasm of breast (principal); Z80.3 Family history of malignant neoplasm of breast
CPT/HCPCS: 77063; 77067

== ENCOUNTER → 2020-12-27 11:18 | Outpatient (CLI) | payer MEDICAID, SELFPAY ==
[2020-12-27 14:58] LABS: Absolute Lymphocyte Count 1.66 X10^3/uL (0.83-4.51); Absolute Neutrophil Count 2.6 X10^3/uL (2.0-7.7); Basophil# 0.04 X10^3/uL; Basophil% 0.8 % (0-1); Hematocrit 41.7 % (37-47); Hemoglobin 13.1 g/dL (12.0-15.0); Lymphocyte # 1.66 X10^3/ul (0.83-4.51); Lymphocyte % 32.9 % (19-41); Mean Corp Hgb Conc 31.4 g/dL (32-36); Mean Corpuscular Hgb 26.9 pg (27.0-32.0); Mean Corpuscular Volume 85.6 fL (81-99); Mean Platelet Vol. 10.9 fl (6.2-12.0); Monocyte# 0.59 X10^3/uL; Monocyte% 11.7 % (0-10); NRBC Flagged by Analyzer 0 % (0-5); Neutrophil # 2.64 X10^3/uL (2.7-7.7); Neutrophil % 52.4 % (47-70); Platelet Count 221 K/mm3 (150-450); RBC Distribution Width CV 13.6 % (11.6-14.6); RBC Distribution Width SD 42.9 fl (35.1-43.9); Red Blood Count 4.87 M/mm3 (4.2-5.4)
[2020-12-27 15:25] LABS: ALB/GLOB Ratio 0.8 RATIO (0.9-2.4); AST(SGOT) 68 U/L (15-37); Alanine Aminotransfer ALT/SGPT 51 U/L (13-56); Albumin, Serum 3.6 g/dL (3.2-5.0); Alkaline Phosphatase 71 U/L (45-117); Anion Gap 6 (5-15); BUN 22 mg/dL (7-18); Calcium,Total 8.8 mg/dL (8.5-10.1); Chloride 106 mmol/L (98-107); Creatinine, Serum 1.22 mg/dL (0.55-1.02); EST Glomerular Filtration Rate 49 mL/min (>60); Est Glom Filt Rate - Afr Amer 59 mL/min (>60); Globulin 4.5 g/dL (2.2-4.2); Glucose 103 mg/dL (74-106); Potassium 3.7 mmol/L (3.5-5.1); Protein, Total 8.1 g/dL (6.4-8.2); Sodium Level 139 mmol/L (136-145)
== END ==
PROVIDERS: PCP Family Medicine; Referring Provider Family Medicine; Visit Provider Family Medicine
DX: I10 Essential (primary) hypertension (principal); K76.0 Fatty (change of) liver, not elsewhere classified; R63.4 Abnormal weight loss
CPT/HCPCS: 36415; 80053; 85025

== ENCOUNTER → 2021-01-10 12:30 | Outpatient (CLI) | payer MEDICAID, SELFPAY ==
--- NOTE | 2021-01-10 12:36 | STEWCON_ITS ---
Reason For Study: HTN Stress Results Maximum Predicted HR: 165 bpm Target HR: 140 bpm % Maximum Predicted HR: 94 % DurationHeart Rate Stage (mm:ss) (bpm) BP Comment BASELINE 84 138/944 CC DEFINITY FOR ENTIRE TEST STAGE 1 3:00 141 138/52 STAGE 2 3:00 142 142/72SOB NOTED, NO CHEST PAIN STAGE 3 1:00 155 / SOB NO CHEST PAIN RECOVERY 99 140/84 Stress Duration: 7:00 mm:ss Maximum Stress HR: 155 bpm Baseline Echocardiogram Findings Stress Echo Wall motion Data Resting WM Intermediate WM Stress WM ECHO/Stress Test Echo W/Contrast Interpretation Summary Exercise stress echo. 55-year-old lady with a history of chest pain. Stress protocol: Resting EKG demonstrates normal sinus rhythm with a rate of 85 bpm normal inter vals are noted resting blood pressure is 138/94 mmHg. The patient exercised according to the r egular Chirag protocol for a total duration of 7 minutes. The maximum heart rate attained was 155 bpm which was 93% of maximum predicted heart rate the maximum workload was 10.1 metabolic equivalent s. At rest there were no ST or T wave changes noted to suggest ischemia and at peak exercise upslopin g ST changes were noted with did not meet the criteria for ischemia. No clinical angina was noted . The peak blood pressure was 152/86 mmHg which was a good blood pressure response to exercise. The test was terminated due to dyspnea. Stress echocardiogram. The resting echocardiographic images were obtained with Definity enhancement an d also at peak exercise images were obtained with Definity enhancement. There was improvement in left ventricular ejection fraction from 55% to 65%. No wall motion abnormalities are noted. Conclusion: Exercise stress echo with no EKG or echocardiographic criteria for ischemia at a high workload. No clinical angina noted. Good functional aerobic capacity. Ordering Physician: Juan Manuel Carbajal Referring Physician: Juan Manuel Carbajal Performed By: Brenda Vee, RDCS, RVT
== END ==
PROVIDERS: PCP Family Medicine; Referring Provider Family Medicine; Visit Provider Family Medicine
DX: R07.9 Chest pain, unspecified (principal); R94.31 Abnormal electrocardiogram [ECG] [EKG]
CPT/HCPCS: 93017; 93350; Q9957; A4216; C8928; J3490

== ENCOUNTER → 2021-12-26 | Outpatient (CLI) | payer MEDICAID, SELFPAY ==
--- NOTE | 2021-12-26 14:40 | BI_ITS ---
MAMMOGRAPHY - BILATERAL SCREENING REASON FOR EXAM: Female, 56 years old. Routine annual screening examination. PERTINENT HISTORY: Grandmother with breast cancer. Personal history of prior bilateral breast reduction surgery. TECHNIQUE: Digital bilateral breast rachel (3D mammographic acquisition) in the CC and MLO projections. 2-D mediolateral oblique (MLO) and craniocaudad (CC) views of both breasts were obtained. CAD: Full Field Digital Mammography with Computer Added Detection was performed. COMPARISON: Screening mammogram from 12/25/2020, 08/22/2018. FINDINGS: Breast Composition: The breasts are almost entirely fatty. There are no dominant masses or suspicious calcifications. No other significant abnormalities are identified. There has been no significant change since the prior study. BI/SCRN MAMM (CAD)W/RACHEL BILAT IMPRESSION: Stable bilateral screening mammogram. Yearly follow-up mammogram recommended. (A) ASSESSMENT CATEGORY: BIRADS Category 1: Negative. A letter regarding these results will be sent to the patient by the facility within 30 days. Approximately 10% of breast cancers are not detected by mammography. A normal mammogram should not delay biopsy of a clinically suspicious abnormality. [id number] Electronically Signed: Dhaval Carvalho, at 16:20 EDT ,
== END | disposition home or self-care (01) ==
LOC: OPBI 14:29
PROVIDERS: PCP Family Medicine; Visit Provider Family Medicine
DX: Z12.31 Encounter for screening mammogram for malignant neoplasm of breast (principal)
CPT/HCPCS: 77063; 77067

== ENCOUNTER → 2022-06-21 | Outpatient (CLI) | payer MEDICAID, SELFPAY ==
[2022-06-21 15:27] LABS: Absolute Neutrophil Count 3.5 X10^3/uL (2.0-7.7); Basophil# 0.03 X10^3/uL; Basophil% 0.5 % (0-1); Eosinophil# 0.08 X10^3/uL; Eosinophils% 1.4 % (0-5); Hematocrit 39.2 % (37-47); Lymphocyte % 26.5 % (19-41); Mean Corp Hgb Conc 33.2 g/dL (32-36); Mean Corpuscular Hgb 28.8 pg (27.0-32.0); Mean Corpuscular Volume 86.9 fL (81-99); Mean Platelet Vol. 10.7 fl (6.2-12.0); Monocyte# 0.57 X10^3/uL; Monocyte% 10.1 % (0-10); NRBC Flagged by Analyzer 0 % (0-5); Neutrophil # 3.46 X10^3/uL (2.7-7.7); Neutrophil % 61.1 % (47-70); Platelet Count 257 K/mm3 (150-450); RBC Distribution Width CV 13.4 % (11.6-14.6); RBC Distribution Width SD 42.5 fl (35.1-43.9); Red Blood Count 4.51 M/mm3 (4.2-5.4); White Blood Count 5.7 K/mm3 (4.4-11.0)
[2022-06-21 16:08] LABS: Ferritin 128 ng/mL (8-252); Iron 68 ug/dL (50-170); Thyroid Stim Hormone (TSH) 2.56 uIU/mL (0.358-3.74)
[2022-06-21 16:09] LABS: Vitamin B12 637 pg/mL (211-911); Vitamin D,25 Hydroxy 13.1 ng/mL
== END | disposition home or self-care (01) ==
LOC: BFHLAB 14:03
PROVIDERS: PCP Family Medicine; Visit Provider Family Medicine
DX: R53.83 Other fatigue (principal)
CPT/HCPCS: 36415; 82306; 82607; 82728; 83540; 84443; 85025

== ENCOUNTER → 2023-05-30 | Outpatient (CLI) | payer MEDICAID, SELFPAY ==
[2023-05-30 17:40] LABS: Absolute Lymphocyte Count 1.73 X10^3/uL (0.83-4.51); Absolute Neutrophil Count 3.6 X10^3/uL (2.0-7.7); Basophil# 0.03 X10^3/uL; Basophil% 0.5 % (0-1); Eosinophil# 0.07 X10^3/uL; Eosinophils% 1.1 % (0-5); Hematocrit 40.2 % (37-47); Hemoglobin 12.7 g/dL (12.0-15.0); Lymphocyte # 1.73 X10^3/ul (0.83-4.51); Mean Corp Hgb Conc 31.6 g/dL (32-36); Mean Corpuscular Hgb 27.4 pg (27.0-32.0); Mean Corpuscular Volume 86.6 fL (81-99); Mean Platelet Vol. 10.7 fl (6.2-12.0); Monocyte# 0.68 X10^3/uL; NRBC Flagged by Analyzer 0 % (0-5); Neutrophil # 3.64 X10^3/uL (2.7-7.7); Neutrophil % 59.1 % (47-70); Platelet Count 283 K/mm3 (150-450); RBC Distribution Width CV 13.6 % (11.6-14.6); RBC Distribution Width SD 43.1 fl (35.1-43.9); Red Blood Count 4.64 M/mm3 (4.2-5.4); White Blood Count 6.2 K/mm3 (4.4-11.0)
[2023-05-30 18:05] LABS: Hemoglobin A1c 5.4 % (3.8-5.6)
[2023-05-30 18:14] LABS: ALB/GLOB Ratio 0.7 RATIO (0.9-2.4); AST(SGOT) 35 U/L (15-37); Alanine Aminotransfer ALT/SGPT 27 U/L (13-56); Albumin, Serum 3.5 g/dL (3.2-5.0); Alkaline Phosphatase 56 U/L (45-117); Anion Gap 5 (5-15); BUN 17 mg/dL (7-18); BUN/Creat Ratio 16.7 RATIO (10-20); Calcium,Total 9.2 mg/dL (8.5-10.1); Chloride 105 mmol/L (98-107); Cholesterol 192 mg/dL (200); Creatinine, Serum 1.02 mg/dL (0.55-1.02); EST Glomerular Filtration Rate 59 mL/min (>60); Est Glom Filt Rate - Afr Amer 72 mL/min (>60); Globulin 4.8 g/dL (2.2-4.2); Glucose 82 mg/dL (74-106); High Density Lipoprotein 46 mg/dL; Potassium 4.1 mmol/L (3.5-5.1); Protein, Total 8.3 g/dL (6.4-8.2); Sodium Level 137 mmol/L (136-145); Triglycerides 141 mg/dL; Very Low Density Lipoprotein 28 mg/dL (5-40)
== END | disposition home or self-care (01) ==
LOC: BFHLAB 14:09
PROVIDERS: PCP Family Medicine; Referring Provider Family Medicine; Visit Provider Family Medicine
DX: Z00.00 Encounter for general adult medical examination without abnormal findings (principal); K76.0 Fatty (change of) liver, not elsewhere classified; Z79.899 Other long term (current) drug therapy
CPT/HCPCS: 36415; 80053; 80061; 83036; 85025

== ENCOUNTER → 2023-07-09 | Outpatient (CLI) | payer MEDICAID, SELFPAY ==
--- NOTE | 2023-07-09 08:36 | BI_ITS ---
MAMMOGRAPHY - BILATERAL SCREENING REASON FOR EXAM: Female, 58 years old. Routine annual screening examination. PERTINENT HISTORY: Grandmother with breast cancer. Prior bilateral breast reduction surgery. TECHNIQUE: Digital bilateral breast rachel (3D mammographic acquisition) in the CC and MLO projections. 2-D mediolateral oblique (MLO) and craniocaudad (CC) views of both breasts were obtained. CAD: Full Field Digital Mammography with Computer Added Detection was performed. COMPARISON: Comparison is made with prior study of December 26, 2021 and December 25, 2020. FINDINGS: Breast Composition: There are scattered areas of fibroglandular density. There are no dominant masses or suspicious calcifications. No other significant abnormalities are identified. There has been no significant change since the prior study. BI/SCRN MAMM (CAD)W/RACHEL BILAT IMPRESSION: Stable bilateral screening mammogram. Yearly follow-up mammogram recommended. (A) ASSESSMENT CATEGORY: BIRADS Category 1: Negative. A letter regarding these results will be sent to the patient by the facility within 30 days. Approximately 10% of breast cancers are not detected by mammography. A normal mammogram should not delay biopsy of a clinically suspicious abnormality. [id number] Electronically Signed: Ranjith Charles MD at 10:00 EST ,
== END | disposition home or self-care (01) ==
LOC: OPBI 08:34
PROVIDERS: PCP Family Medicine; Referring Provider Family Medicine; Visit Provider Family Medicine
DX: Z12.31 Encounter for screening mammogram for malignant neoplasm of breast (principal)
CPT/HCPCS: 77063; 77067

== ENCOUNTER → 2023-07-25 | Outpatient (CLI) | payer MEDICAID, SELFPAY ==
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
== END | disposition home or self-care (01) ==
LOC: RAD 12:55
PROVIDERS: PCP Family Medicine; Referring Provider Family Medicine; Visit Provider Family Medicine
DX: R13.10 Dysphagia, unspecified (principal)
CPT/HCPCS: 74230; 92611

== ENCOUNTER → 2023-11-28 | Outpatient (CLI) | payer MEDICAID, SELFPAY | END | disposition home or self-care (01) | LOC: LABSPEC 16:35 | PROVIDERS: PCP Family Medicine; Visit Provider Family Medicine | DX: S31.109A Unspecified open wound of abdominal wall, unspecified quadrant without penetration into peritoneal cavity, initial encounter (principal); X58.XXXA Exposure to other specified factors, initial encounter | CPT/HCPCS: 87070; 87077; 87186; 87205 ==

== ENCOUNTER → 2024-06-02 | Outpatient (CLI) | payer MEDICAID, SELFPAY ==
[2024-06-02 12:15] LABS: Absolute Lymphocyte Count 1.85 X10^3/uL (0.83-4.51); Absolute Neutrophil Count 2.8 X10^3/uL (2.0-7.7); Basophil# 0.03 X10^3/uL; Basophil% 0.6 % (0-1); Eosinophil# 0.12 X10^3/uL; Eosinophils% 2.2 % (0-5); Hematocrit 38.8 % (37-47); Hemoglobin 12.5 g/dL (12.0-15.0); Lymphocyte # 1.85 X10^3/ul (0.83-4.51); Lymphocyte % 34.1 % (19-41); Mean Corp Hgb Conc 32.2 g/dL (32-36); Mean Corpuscular Hgb 27.8 pg (27.0-32.0); Mean Corpuscular Volume 86.4 fL (81-99); Mean Platelet Vol. 10.6 fl (6.2-12.0); Monocyte# 0.59 X10^3/uL; Monocyte% 10.9 % (0-10); NRBC Flagged by Analyzer 0 % (0-5); Neutrophil # 2.83 X10^3/uL (2.7-7.7); Platelet Count 274 K/mm3 (150-450); RBC Distribution Width CV 13.7 % (11.6-14.6); RBC Distribution Width SD 43.3 fl (35.1-43.9); Red Blood Count 4.49 M/mm3 (4.2-5.4); White Blood Count 5.4 K/mm3 (4.4-11.0)
[2024-06-02 12:40] LABS: ALB/GLOB Ratio 0.9 RATIO (0.9-2.4); AST(SGOT) 29 U/L (15-37); Alanine Aminotransfer ALT/SGPT 18 U/L (13-56); Albumin, Serum 3.3 g/dL (3.2-5.0); Alkaline Phosphatase 49 U/L (45-117); Anion Gap 5 (5-15); BUN 20 mg/dL (7-18); BUN/Creat Ratio 18.9 RATIO (10-20); Calcium,Total 8.9 mg/dL (8.5-10.1); Chloride 108 mmol/L (98-107); Cholesterol 219 mg/dL (200); Creatinine, Serum 1.06 mg/dL (0.55-1.02); EST Glomerular Filtration Rate 56 mL/min (>60); Est Glom Filt Rate - Afr Amer 68 mL/min (>60); Globulin 3.8 g/dL (2.2-4.2); Glucose 90 mg/dL (74-106); High Density Lipoprotein 57 mg/dL; Potassium 3.9 mmol/L (3.5-5.1); Protein, Total 7.1 g/dL (6.4-8.2); Sodium Level 139 mmol/L (136-145); Triglycerides 176 mg/dL; Very Low Density Lipoprotein 35 mg/dL (5-40)
== END | disposition home or self-care (01) ==
LOC: BFHLAB 08:44
PROVIDERS: PCP Family Medicine; Referring Provider Nurse Practitioner Family; Visit Provider Nurse Practitioner Family
DX: Z00.00 Encounter for general adult medical examination without abnormal findings (principal); K76.0 Fatty (change of) liver, not elsewhere classified; Z79.899 Other long term (current) drug therapy
CPT/HCPCS: 36415; 80053; 80061; 85025

== ENCOUNTER → 2024-08-16 | Outpatient (CLI) | payer MEDICAID, SELFPAY | END | disposition home or self-care (01) | PROVIDERS: PCP Family Medicine; Visit Provider Family Medicine | DX: Z79.899 Other long term (current) drug therapy (principal) | CPT/HCPCS: 36415 ==

== ENCOUNTER → 2025-06-06 | Outpatient (CLI) | payer MEDICAID, SELFPAY ==
--- NOTE | 2025-06-06 12:55 | RAD_ITS ---
RAD/L/S Spine Min 4 Views
--- NOTE | 2025-06-06 12:55 | RAD_ITS ---
PROCEDURE: RAD/Thoracic Spine 3 Views
[2025-06-06 13:39] LABS: Hematocrit 36.4 % (37-47); Hemoglobin 12.0 g/dL (12.0-15.0); Immature Granulocytes Count 0.010 X10^3/uL (0.0-0.0); Mean Corp Hgb Conc 33.0 g/dL (32-36); Mean Corpuscular Volume 81.8 fL (81-99); Mean Platelet Vol. 10.1 fl (6.2-12.0); NRBC Flagged by Analyzer 0 % (0-5); Platelet Count 258 K/mm3 (150-450); RBC Distribution Width CV 13.8 % (11.6-14.6); RBC Distribution Width SD 40.6 fl (35.1-43.9); Red Blood Count 4.45 M/mm3 (4.2-5.4); White Blood Count 6.0 K/mm3 (4.4-11.0)
[2025-06-06 14:12] LABS: AST(SGOT) 35 U/L (<=31); Alanine Aminotransfer ALT/SGPT 11 U/L (<=34); Albumin, Serum 4.0 g/dL (3.4-4.8); Alkaline Phosphatase 50 U/L (35-104); Anion Gap 11 (5-15); BUN 12 mg/dL (4-19); BUN/Creat Ratio 13.1 RATIO (10-20); Calcium,Total 9.0 mg/dL (7.6-11.0); Carbon Dioxide 21.5 mmol/L (21.0-32.0); Chloride 104 mmol/L (98-108); Cholesterol 197 mg/dL (<=200); Globulin 3.6 g/dL (2.2-4.2); Glucose 129 mg/dL (70-99); Low Density Lipoprotein Calc. 113 mg/dL; Potassium 3.9 mmol/L (3.3-5.1); Triglycerides 209 mg/dL; Very Low Density Lipoprotein 42 mg/dL (5-40); cholesterol:hdl ratio screen 4.11
== END | disposition home or self-care (01) ==
LOC: RAD 12:43
PROVIDERS: PCP Family Medicine; Referring Provider Family Medicine; Visit Provider Family Medicine
DX: Z00.00 Encounter for general adult medical examination without abnormal findings (principal); M54.6 Pain in thoracic spine; M54.50 Low back pain, unspecified; R00.0 Tachycardia, unspecified; Z79.899 Other long term (current) drug therapy
CPT/HCPCS: 36415; 72072; 72110; 80053; 80061; 83036; 84443; 85025